=== PATIENT | female | born 1970 | race African-American/Black ===

== ENCOUNTER → 2018-07-30 | Day surgery (SDC) | payer MEDICARE, MEDICAID ==
[~2018-07-30] VITALS: Ht 170.2 cm; Wt 130.4 kg
[~2018-07-30] MED LIST: BACITRACIN 50,000 UNITS/VIAL ONE; BACITRACIN ZINC 15GM TUBE TOP ONE; BUPIVACAINE HCL/PF 0.5% (5MG/ML) 10ML ONE; BUPR150T3 PO; CYCL10TA7 PO; DIPH25CA83 PO; DOCU-150 PO; FERR325T6 PO; FURO40TA5 PO; GELATIN SPONGE,COMPRESSED SZ 100 ONE; HEPARIN SODIUM 1,000 UNIT/1ML VIAL IV ONE; HYDR-4001 PO; LIDOCAINE HCL 1% 10 MG/ML 10ML VIAL ONE; LISI-604 PO; METO100T16 PO; MIDO5TAB PO; NORMAL SALINE 0.9% 10 ML SYR ONE; ONDA4TAB5 PO; REN800 PO; SIMV20TA6 PO; SODIUM CHLORIDE 0.9% 500 ML IV ONE; SPIR25TA6 PO; THROMBIN (BOVINE) 5000 UNITS/VIAL TOP ONE; TRAZ-212 PO
== END | disposition home or self-care (01) ==
LOC: OR 09:18
PROVIDERS: ATTEND Surgery Vascular Surgery
DX: N18.6 End stage renal disease (principal); Z53.9 Procedure and treatment not carried out, unspecified reason; F41.9 Anxiety disorder, unspecified; F17.210 Nicotine dependence, cigarettes, uncomplicated; Z79.899 Other long term (current) drug therapy
CPT/HCPCS: 93005; A4216; J1644; J3490

== ENCOUNTER 2019-02-18 16:42 | Inpatient (IN) | payer MEDICARE, MEDICAID ==
[~2019-02-18] VITALS: Ht 170.2 cm; Wt 138.4 kg
[~2019-02-18 16:42] MED LIST changes: -BACITRACIN 50,000 UNITS/VIAL ONE; -BACITRACIN ZINC 15GM TUBE TOP ONE; -BUPIVACAINE HCL/PF 0.5% (5MG/ML) 10ML ONE; -FURO40TA5 PO; -GELATIN SPONGE,COMPRESSED SZ 100 ONE; -HEPARIN SODIUM 1,000 UNIT/1ML VIAL IV ONE; -LIDOCAINE HCL 1% 10 MG/ML 10ML VIAL ONE; -LISI-604 PO; -METO100T16 PO; -NORMAL SALINE 0.9% 10 ML SYR ONE; -SIMV20TA6 PO; -SODIUM CHLORIDE 0.9% 500 ML IV ONE; -SPIR25TA6 PO; -THROMBIN (BOVINE) 5000 UNITS/VIAL TOP ONE
[2019-02-18] MEDS ORDERED: ACETAMINOPHEN 325MG TABLET PO PRN (18:00)
[2019-02-18] MEDS ORDERED: GUAIFENESIN 200MG/10ML SUGAR FREE UDC PO PRN (18:00)
[2019-02-18] MEDS ORDERED: HEPARIN 5000 UNITS/ML VIAL IV ONE (18:00)
[2019-02-18] MEDS ORDERED: MAGNESIUM/ALUMINUM HYDROXIDE/SIMETHICONE 30ML UDC PO PRN (18:00)
[2019-02-18] MEDS ORDERED: CLONIDINE 0.1MG TABLET PO PRN (18:00)
[2019-02-18] MEDS ORDERED: HEPARIN 25,000 UNITS PREMIX 500 ML IV SCH (18:00)
[2019-02-18] MEDS ORDERED: HYDROCODONE/ACETAMINOPHEN 5/325MG TABLET PO ONE (18:45)
[2019-02-18 19:05] LABS: HEMATOCRIT. 31.6 % (36.0-48.0); HEMOGLOBIN. 10.7 g/dL (12.0-16.0); MEAN CORPUSCULAR HEMOGLOBIN 30.7 pg (28.0-32.0); MEAN CORPUSCULAR VOLUME 90.9 fL (81.0-99.0); MEAN PLATELET VOLUME 8.7 fl (7.4-10.4); PLATELET 141 x1000/uL (130-400); RED BLOOD CELL COUNT 3.48 mill/uL (4.2-5.4); RED CELL DISTRIBUTION WIDTH 15.5 % (11.6-14.6)
[2019-02-18 19:09] LABS: CHLORIDE 100 mEq/L (98-107)
[2019-02-18 20:21] LABS: PLATELET ESTIMATE NORMAL
[2019-02-18] MEDS: MORPHINE SULFATE 4 MG/ML CPJ (NOT FOR IM USE) IV PRN (20:40)
[2019-02-18] MEDS: ONDANSETRON HCL 4MG/2ML INJ IV PRN (20:41)
[2019-02-18 21:43] LABS: HEMATOCRIT. 33.8 % (36.0-48.0); HEMOGLOBIN. 11.3 g/dL (12.0-16.0); MEAN CORPUSCULAR HEMOGLOBIN 30.3 pg (28.0-32.0); MEAN CORPUSCULAR VOLUME 90.5 fL (81.0-99.0); MEAN PLATELET VOLUME 8.7 fl (7.4-10.4); PLATELET 148 x1000/uL (130-400); RED BLOOD CELL COUNT 3.73 mill/uL (4.2-5.4); RED CELL DISTRIBUTION WIDTH 15.2 % (11.6-14.6)
[2019-02-18] MEDS ORDERED: HYDROCODONE/ACETAMINOPHEN 5/325MG TABLET PO PRN (22:00)
[2019-02-18 22:03] LABS: PLATELET ESTIMATE NORMAL
[2019-02-18 22:20] VITALS: BP 155/60
[2019-02-18] MEDS ORDERED: TRAMADOL 50MG TABLET PO PRN ×2 (23:15→23:45)
[2019-02-19 00:11] LABS: PARTIAL THROMBOPLASTIN TIME 29.3 sec (23.4-31.0)
[2019-02-19] MEDS: MORPHINE SULFATE 4 MG/ML CPJ (NOT FOR IM USE) IV PRN ×4 (00:41→20:10)
[2019-02-19] MEDS ORDERED: HEPARIN BOLUS PRN aPTT <36 IV (02:00)
[2019-02-19] MEDS ORDERED: HEPARIN BOLUS PRN aPTT 37-44 IV (02:00)
[2019-02-19] MEDS: HEPARIN 25,000 UNITS PREMIX 500 ML IV SCH ×2 (02:35→18:10)
[2019-02-19] MEDS: DIPHENHYDRAMINE 50MG/ML VIAL IV PRN ×4 (02:40→20:10)
[2019-02-19 04:00] VITALS: BP 144/70
[2019-02-19 07:06] LABS: HEMATOCRIT. 33.5 % (36.0-48.0); MEAN CORPUSCULAR HEMOGLOBIN 30.2 pg (28.0-32.0); MEAN CORPUSCULAR VOLUME 91.8 fL (81.0-99.0); MEAN PLATELET VOLUME 9.1 fl (7.4-10.4); PLATELET 174 x1000/uL (130-400); RED BLOOD CELL COUNT 3.65 mill/uL (4.2-5.4); RED CELL DISTRIBUTION WIDTH 15.5 % (11.6-14.6)
[2019-02-19 07:43] LABS: CHLORIDE 100 mEq/L (98-107)
[2019-02-19 08:00] VITALS: BP 135/79
[2019-02-19] MEDS: AMLODIPINE 10MG TABLET PO SCH (09:00)
[2019-02-19] MEDS: LOSARTAN POTASSIUM 50 MG TABLET PO SCH ×2 (09:00→21:00)
[2019-02-19] MEDS: SEVELAMER CARBONATE 800 MG TABLET PO SCH ×3 (09:24→18:10)
[2019-02-19 12:00] VITALS: BP 116/65
[2019-02-19] MEDS ORDERED: LEVOFLOXACIN 500MG PREMIX 100 ML IV SCH (12:00)
[2019-02-19] MEDS: ONDANSETRON HCL 4MG/2ML INJ IV PRN ×2 (13:08→19:42)
[2019-02-19 20:00] VITALS: BP 102/50
[2019-02-19 20:31] LABS: PLATELET ESTIMATE NORMAL
[2019-02-19] MEDS ORDERED: REGADENOSON 0.4 MG/5 ML IV NR (21:00)
[2019-02-19] MEDS: ZOLPIDEM TARTRATE 5MG TABLET PO PRN (23:36)
[2019-02-20] VITALS (7 sets, daily range): BP systolic 91–124; BP diastolic 38–63
[2019-02-20 07:25] LABS: CHLORIDE 101 mEq/L (98-107)
[2019-02-20 07:55] LABS: BASOPHILS % 0.8 % (0.0-2.0); EOSINOPHILS % 0.8 % (0.0-5.0); HEMATOCRIT. 31.6 % (36.0-48.0); HEMOGLOBIN. 10.5 g/dL (12.0-16.0); LYMPHOCYTES % 22.9 % (20.0-50.0); MEAN CORPUSCULAR HEMOGLOBIN 30.6 pg (28.0-32.0); MEAN CORPUSCULAR VOLUME 91.9 fL (81.0-99.0); MEAN PLATELET VOLUME 8.8 fl (7.4-10.4); MONOCYTES % 5.9 % (2.0-8.0); NEUTROPHILS % 69.6 % (40.0-76.0); PLATELET 158 x1000/uL (130-400); RED BLOOD CELL COUNT 3.44 mill/uL (4.2-5.4); RED CELL DISTRIBUTION WIDTH 15.8 % (11.6-14.6)
[2019-02-20] MEDS: AMLODIPINE 10MG TABLET PO SCH (08:45)
[2019-02-20] MEDS: LOSARTAN POTASSIUM 50 MG TABLET PO SCH ×2 (08:45→21:00)
[2019-02-20] MEDS: SEVELAMER CARBONATE 800 MG TABLET PO SCH ×3 (08:49→17:28)
[2019-02-20] MEDS: HEPARIN 25,000 UNITS PREMIX 500 ML IV SCH (09:39)
[2019-02-20] MEDS: MORPHINE SULFATE 4 MG/ML CPJ (NOT FOR IM USE) IV PRN ×3 (09:48→20:23)
[2019-02-20] MEDS: ONDANSETRON HCL 4MG/2ML INJ IV PRN ×2 (09:49→19:00)
[2019-02-20] MEDS: DIPHENHYDRAMINE 50MG/ML VIAL IV PRN ×3 (11:01→23:14)
[2019-02-20] MEDS: FAMOTIDINE 20MG TABLET PO SCH (20:23)
[2019-02-20] MEDS: ZOLPIDEM TARTRATE 5MG TABLET PO PRN (23:14)
[2019-02-21] VITALS (7 sets, daily range): BP systolic 99–135; BP diastolic 46–97
[2019-02-21] MEDS: HEPARIN 25,000 UNITS PREMIX 500 ML IV SCH (03:24)
[2019-02-21 08:30] LABS: PROTHROMBIN TIME 10.5 sec (9.6-11.0)
[2019-02-21] MEDS: LOSARTAN POTASSIUM 50 MG TABLET PO SCH ×2 (09:00→21:00)
[2019-02-21] MEDS: AMLODIPINE 10MG TABLET PO SCH (09:00)
[2019-02-21] MEDS ORDERED: REGADENOSON 0.4 MG/5 ML IV ONE (09:08)
[2019-02-21] MEDS: DIPHENHYDRAMINE 50MG/ML VIAL IV PRN ×3 (10:57→20:24)
[2019-02-21] MEDS: SEVELAMER CARBONATE 800 MG TABLET PO SCH ×3 (10:57→20:02)
[2019-02-21] MEDS: MORPHINE SULFATE 4 MG/ML CPJ (NOT FOR IM USE) IV PRN ×3 (10:58→20:28)
[2019-02-21] MEDS ORDERED: SODIUM BICARBONATE 4% (2.4MEQ) 5ML VIAL IV ONE (13:30)
[2019-02-21] MEDS ORDERED: LIDOCAINE HCL 1% 20ML VIAL (Pyxis) INJ ONE (13:30)
[2019-02-21] MEDS: LEVOFLOXACIN 500MG TABLET PO SCH (14:39)
[2019-02-21] MEDS: DOCUSATE SODIUM 100MG CAPSULE PO PRN (14:44)
[2019-02-21] MEDS: ONDANSETRON HCL 4MG/2ML INJ IV PRN (15:24)
[2019-02-21] MEDS: ENOXAPARIN 150MG/ML SYR SUBCUT SCH (17:49)
[2019-02-21] MEDS ORDERED: ASPI-1159 PO (19:43)
[2019-02-21] MEDS ORDERED: CINA30 PO ×2 (19:45→19:46)
[2019-02-21] MEDS ORDERED: FURO40TA5 PO (19:54)
[2019-02-21] MEDS ORDERED: OMEP20CA10 PO (19:54)
[2019-02-21] MEDS ORDERED: ROSU10TA25 PO (19:55)
[2019-02-21] MEDS ORDERED: OLME40TA18 PO (19:57)
[2019-02-21] MEDS: WARFARIN SODIUM 5MG TABLET PO SCH (20:01)
[2019-02-21] MEDS: ZOLPIDEM TARTRATE 5MG TABLET PO PRN (22:39)
[2019-02-21] MEDS: FAMOTIDINE 20MG TABLET PO SCH (22:44)
[2019-02-22] VITALS: BP 115/67
[2019-02-22] MEDS: MORPHINE SULFATE 4 MG/ML CPJ (NOT FOR IM USE) IV PRN ×4 (00:41→21:19)
[2019-02-22] MEDS: DIPHENHYDRAMINE 50MG/ML VIAL IV PRN ×4 (00:41→21:14)
[2019-02-22] MEDS: ONDANSETRON HCL 4MG/2ML INJ IV PRN ×2 (00:45→17:00)
[2019-02-22 08:00] VITALS: BP 113/66
[2019-02-22] MEDS ORDERED: HEPARIN SODIUM 1,000 UNIT/1ML VIAL IV NR (08:45)
[2019-02-22 08:53] LABS: PROTHROMBIN TIME 10.8 sec (9.6-11.0)
[2019-02-22] MEDS: LOSARTAN POTASSIUM 50 MG TABLET PO SCH ×2 (09:00→20:02)
[2019-02-22] MEDS: AMLODIPINE 10MG TABLET PO SCH (09:00)
[2019-02-22] MEDS: SEVELAMER CARBONATE 800 MG TABLET PO SCH ×3 (11:14→18:25)
[2019-02-22] MEDS: DOCUSATE SODIUM 100MG CAPSULE PO PRN (11:14)
[2019-02-22 12:00] VITALS: BP 116/60
[2019-02-22] MEDS: ENOXAPARIN 150MG/ML SYR SUBCUT SCH (14:13)
[2019-02-22] MEDS: LACTULOSE 20G/30ML UDC PO PRN (16:29)
[2019-02-22] MEDS: WARFARIN SODIUM 5MG TABLET PO SCH (18:24)
[2019-02-22 20:00] VITALS: BP 119/61
[2019-02-22] MEDS: FAMOTIDINE 20MG TABLET PO SCH (20:24)
[2019-02-23] VITALS (20 sets, daily range): BP systolic 116–152; BP diastolic 49–79
[2019-02-23] MEDS: ZOLPIDEM TARTRATE 5MG TABLET PO PRN (00:19)
[2019-02-23] MEDS: MORPHINE SULFATE 4 MG/ML CPJ (NOT FOR IM USE) IV PRN (03:34)
[2019-02-23 06:49] LABS: INR 1.1; PROTHROMBIN TIME 10.9 sec (9.6-11.0)
[2019-02-23] MEDS ORDERED: METHADONE HCL 10MG TABLET PO SCH (08:00)
[2019-02-23] MEDS: LOSARTAN POTASSIUM 50 MG TABLET PO SCH ×3 (08:56→22:04)
[2019-02-23] MEDS: AMLODIPINE 10MG TABLET PO SCH (08:57)
[2019-02-23] MEDS: SEVELAMER CARBONATE 800 MG TABLET PO SCH ×3 (09:12→18:10)
[2019-02-23] MEDS ORDERED: HEPARIN 1000 UNITS/ML 10ML ONE (13:20)
[2019-02-23] MEDS ORDERED: LIDOCAINE HCL 1% 20ML VIAL (Pyxis) INJ ONE (13:20)
[2019-02-23] MEDS ORDERED: SODIUM BICARBONATE 4% (2.4MEQ) 5ML VIAL IV ONE (13:20)
[2019-02-23] MEDS ORDERED: CEFAZOLIN 1000MG PREMIX 50 ML IV ONE ×2 (13:31→13:45)
[2019-02-23] MEDS ORDERED: FENTANYL CITRATE/PF 50MCG/ML 2ML VIAL ONE (13:32)
[2019-02-23] MEDS: LEVOFLOXACIN 500MG TABLET PO SCH (14:00)
[2019-02-23] MEDS: ENOXAPARIN 150MG/ML SYR SUBCUT SCH (14:00)
[2019-02-23] MEDS ORDERED: FENTANYL CITRATE/PF 50MCG/ML 2ML VIAL IV SCH (14:15)
[2019-02-23] MEDS ORDERED: LORAZEPAM 2MG/ML CPJ IV SCH (15:45)
[2019-02-23] MEDS ORDERED: WARFARIN SODIUM 7.5MG TABLET PO SCH (18:00)
[2019-02-23] MEDS: DIPHENHYDRAMINE 50MG/ML VIAL IV PRN (19:10)
[2019-02-23] MEDS ORDERED: LORAZEPAM 2MG/ML CPJ IV PRN (22:00)
[2019-02-23] MEDS: FAMOTIDINE 20MG TABLET PO SCH (22:04)
[2019-02-24] VITALS (7 sets, daily range): BP systolic 102–152; BP diastolic 30–94
[2019-02-24] MEDS: METHADONE HCL 10MG TABLET PO PRN ×3 (00:35→20:13)
[2019-02-24] MEDS: ONDANSETRON HCL 4MG/2ML INJ IV PRN (00:39)
[2019-02-24] MEDS: DIPHENHYDRAMINE 50MG/ML VIAL IV PRN ×4 (01:58→22:41)
[2019-02-24 06:40] LABS: INR 1.1; PROTHROMBIN TIME 10.9 sec (9.6-11.0)
[2019-02-24] MEDS: AMLODIPINE 10MG TABLET PO SCH (08:04)
[2019-02-24] MEDS: LOSARTAN POTASSIUM 50 MG TABLET PO SCH ×2 (08:04→20:09)
[2019-02-24] MEDS: LACTULOSE 20G/30ML UDC PO PRN ×2 (08:10→18:14)
[2019-02-24] MEDS: SEVELAMER CARBONATE 800 MG TABLET PO SCH ×3 (08:10→18:10)
[2019-02-24] MEDS: ENOXAPARIN 150MG/ML SYR SUBCUT SCH (13:08)
[2019-02-24] MEDS ORDERED: WARFARIN SODIUM 7.5MG TABLET PO SCH (18:00)
[2019-02-24] MEDS: FAMOTIDINE 20MG TABLET PO SCH (20:09)
[2019-02-25] VITALS: BP 137/69
[2019-02-25 04:00] VITALS: BP 128/71
[2019-02-25 06:33] LABS: INR 1.1; PROTHROMBIN TIME 11.4 sec (9.6-11.0)
[2019-02-25] MEDS ORDERED: WARFARIN SODIUM 7.5MG TABLET PO SCH (08:00)
[2019-02-25] MEDS: SEVELAMER CARBONATE 800 MG TABLET PO SCH ×2 (08:10→13:10)
[2019-02-25 08:15] VITALS: BP 125/75
[2019-02-25] MEDS: LOSARTAN POTASSIUM 50 MG TABLET PO SCH (08:26)
[2019-02-25] MEDS: AMLODIPINE 10MG TABLET PO SCH (08:26)
[2019-02-25] MEDS ORDERED: POLYETHYLENE GLYCOL 3350 (17GM) 1 DOSE PACK PO SCH (10:30)
[2019-02-25] MEDS ORDERED: BISACODYL 10MG SUPP PR PRN (10:30)
[2019-02-25] MEDS ORDERED: MAGNESIUM HYDROXIDE 400MG/5ML 30ML UDC PO PRN (10:30)
[2019-02-25 12:45] VITALS: BP 126/68
[2019-02-25] MEDS: ENOXAPARIN 150MG/ML SYR SUBCUT SCH (13:20)
[2019-02-25] MEDS ORDERED: HEPARIN SODIUM 1,000 UNIT/1ML VIAL IV ONE (13:45)
[2019-02-25 13:58] VITALS: BP 126/68
[2019-02-25] MEDS: LEVOFLOXACIN 500MG TABLET PO SCH (14:00)
== END 2019-02-25 15:55 | disposition home or self-care (01) | DRG 286 ==
LOC: ER 16:42 → SUPCPDRO 17:37 → 8WST 19:28 → ENRESERV 21:12
PROVIDERS: ADMIT Hospitalist; ATTEND Hospitalist
PROC: 5A1D70Z Performance of Urinary Filtration, Intermittent, Less than 6 Hours Per Day (ICD-10-PCS; 2019-02-19)
PROC: 02HV33Z Insertion of Infusion Device into Superior Vena Cava, Percutaneous Approach (ICD-10-PCS; principal; 2019-02-21)
PROC: B518ZZA Fluoroscopy of Superior Vena Cava, Guidance (ICD-10-PCS; 2019-02-21)
PROC: 5A1D70Z Performance of Urinary Filtration, Intermittent, Less than 6 Hours Per Day (ICD-10-PCS; 2019-02-21)
PROC: B548ZZA Ultrasonography of Superior Vena Cava, Guidance (ICD-10-PCS; 2019-02-21)
PROC: B2141ZZ Fluoroscopy of Right Heart using Low Osmolar Contrast (ICD-10-PCS; 2019-02-23)
PROC: 02H633Z Insertion of Infusion Device into Right Atrium, Percutaneous Approach (ICD-10-PCS; 2019-02-23)
PROC: 5A1D70Z Performance of Urinary Filtration, Intermittent, Less than 6 Hours Per Day (ICD-10-PCS; 2019-02-23)
PROC: 0JH63XZ Insertion of Tunneled Vascular Access Device into Chest Subcutaneous Tissue and Fascia, Percutaneous Approach (ICD-10-PCS; 2019-02-23)
PROC: B244ZZZ Ultrasonography of Right Heart (ICD-10-PCS; 2019-02-23)
PROC: 5A1D70Z Performance of Urinary Filtration, Intermittent, Less than 6 Hours Per Day (ICD-10-PCS; 2019-02-24)
DX: T82.9XXA Unspecified complication of cardiac and vascular prosthetic device, implant and graft, initial encounter (principal); I50.33 Acute on chronic diastolic (congestive) heart failure; N18.6 End stage renal disease; I82.621 Acute embolism and thrombosis of deep veins of right upper extremity; I13.2 Hypertensive heart and chronic kidney disease with heart failure and with stage 5 chronic kidney disease, or end stage renal disease; Z68.42 Body mass index [BMI] 45.0-49.9, adult; J45.909 Unspecified asthma, uncomplicated; E11.22 Type 2 diabetes mellitus with diabetic chronic kidney disease; E11.65 Type 2 diabetes mellitus with hyperglycemia; E66.9 Obesity, unspecified; D72.829 Elevated white blood cell count, unspecified; E78.5 Hyperlipidemia, unspecified; F17.210 Nicotine dependence, cigarettes, uncomplicated; F41.9 Anxiety disorder, unspecified; F32.9 Major depressive disorder, single episode, unspecified; K21.9 Gastro-esophageal reflux disease without esophagitis; R35.1 Nocturia; J98.01 Acute bronchospasm; Y84.1 Kidney dialysis as the cause of abnormal reaction of the patient, or of later complication, without mention of misadventure at the time of the procedure; M17.0 Bilateral primary osteoarthritis of knee; I95.9 Hypotension, unspecified; Z79.01 Long term (current) use of anticoagulants; Z82.49 Family history of ischemic heart disease and other diseases of the circulatory system; Z99.2 Dependence on renal dialysis; Z86.11 Personal history of tuberculosis; Z87.441 Personal history of nephrotic syndrome; Z88.8 Allergy status to other drugs, medicaments and biological substances; Z88.5 Allergy status to narcotic agent; Z91.048 Other nonmedicinal substance allergy status; Z79.1 Long term (current) use of non-steroidal anti-inflammatories (NSAID); Z79.899 Other long term (current) drug therapy; Y92.89 Other specified places as the place of occurrence of the external cause
CPT/HCPCS: 36415; 36569; 36573; 71045; 76937; 77001; 78452; 82962; 83036; 84484; 93017; 93306; 93970; 96365; 96375; 99285; A9500; C1725; C1750; C1769; C1893; J0690; J1200; J1644; J1650; J1956; J2060; J2270; J2405; J2785; J3010; J3490; J7040; J7050; L8514

== ENCOUNTER 2019-05-10 05:28 | Day surgery (SDC) | payer MEDICARE, MEDICAID ==
[~2019-05-10] VITALS: Ht 170.2 cm; Wt 138.0 kg
[~2019-05-10 05:28] MED LIST changes: +ASPI-1393 PO; -BUPR150T3 PO; +CINA30 PO; -CYCL10TA7 PO; -DOCU-150 PO; -FERR325T6 PO; +FURO40TA5 PO; -HYDR-4001 PO; -MIDO5TAB PO; +OLME40TA18 PO; +OMEP20CA5 PO; -ONDA4TAB5 PO; +ROSU10TA25 PO; -TRAZ-212 PO; +TRAZ-251 PO
[2019-05-10] MEDS ORDERED: SODIUM CHLORIDE 0.9% 500 ML IV ONE (05:30)
[2019-05-10 06:35] LABS: BASOPHILS % 1.2 % (0.0-2.0); EOSINOPHILS % 1.2 % (0.0-5.0); HEMATOCRIT. 35.7 % (36.0-48.0); HEMOGLOBIN. 11.8 g/dL (12.0-16.0); LYMPHOCYTES % 19.8 % (20.0-50.0); MEAN CORPUSCULAR HEMOGLOBIN 30.1 pg (28.0-32.0); MEAN CORPUSCULAR VOLUME 91.3 fL (81.0-99.0); MEAN PLATELET VOLUME 8.1 fl (7.4-10.4); NEUTROPHILS % 69.8 % (40.0-76.0); PLATELET 238 x1000/uL (130-400); RED BLOOD CELL COUNT 3.91 mill/uL (4.2-5.4); RED CELL DISTRIBUTION WIDTH 15.3 % (11.6-14.6)
[2019-05-10 06:46] LABS: PARTIAL THROMBOPLASTIN TIME 31.1 sec (23.4-31.0); PROTHROMBIN TIME 10.2 sec (9.6-11.0)
[2019-05-10 06:48] LABS: HCG SCREEN NEGATIVE
[2019-05-10] MEDS ORDERED: HEPARIN SODIUM 1,000 UNIT/1ML VIAL IV ONE (07:01)
[2019-05-10] MEDS ORDERED: BACITRACIN 15GM TUBE TOP ONE (07:01)
[2019-05-10] MEDS ORDERED: LIDOCAINE HCL 1% 20ML VIAL (Pyxis) INJ ONE ×2 (07:01→09:38)
[2019-05-10] MEDS ORDERED: NORMAL SALINE 0.9% 10 ML SYR ONE (07:02)
[2019-05-10] MEDS ORDERED: THROMBIN (BOVINE) 5000 UNITS/VIAL TOP ONE (07:02)
[2019-05-10] MEDS ORDERED: BUPIVACAINE HCL/PF 0.5% (5MG/ML) 10ML ONE (07:02)
[2019-05-10] MEDS ORDERED: BACITRACIN 50,000 UNITS/VIAL ONE (07:02)
[2019-05-10] MEDS ORDERED: HYDR10SY15 PO (07:26)
[2019-05-10] MEDS ORDERED: ALBU90AE IH (07:26)
[2019-05-10] MEDS ORDERED: AURYXIA PO (07:26)
[2019-05-10] MEDS ORDERED: TRAZ-251 PO (07:26)
[2019-05-10] MEDS ORDERED: WARF-53 PO (07:26)
[2019-05-10] MEDS ORDERED: ONDA8TAB6 PO (07:26)
[2019-05-10] MEDS ORDERED: AMLO10TA80 PO (07:26)
[2019-05-10] MEDS ORDERED: PROPOFOL 200MG/20ML VIAL IV ONE ×3 (07:28→08:14)
[2019-05-10] MEDS ORDERED: FENTANYL CITRATE/PF 50MCG/ML 2ML VIAL ONE ×2 (07:28→08:52)
[2019-05-10] MEDS ORDERED: MIDAZOLAM HCL 2 MG/2 ML VIAL ONE (07:28)
[2019-05-10] MEDS ORDERED: ONDANSETRON HCL 4MG/2ML INJ ONE (07:49)
[2019-05-10] MEDS ORDERED: DEXAMETHASONE 4MG/ML 1ML VIAL ONE (07:49)
[2019-05-10] MEDS ORDERED: ROCURONIUM BROMIDE 10MG/ML VIAL 5ML IV ONE (08:14)
[2019-05-10] MEDS ORDERED: HYDROMORPHONE HCL/PF 2MG/ML CPJ IV PRN (08:45)
[2019-05-10] MEDS ORDERED: ONDANSETRON HCL 4MG/2ML INJ IV PRN (08:45)
[2019-05-10] MEDS ORDERED: MEPERIDINE HCL/PF 25MG/ML CPJ IV PRN (08:45)
[2019-05-10] MEDS ORDERED: LABETALOL 5MG/ML SYR 20 MG/4 ML SYRINGE IV PRN (08:45)
[2019-05-10] MEDS ORDERED: PAPAVERINE HCL 30 MG/ML 2ML IV ONE (09:03)
[2019-05-10] MEDS ORDERED: SODIUM CHLORIDE 0.9% 10ML VIAL ONE (09:38)
[2019-05-10] MEDS ORDERED: EPHEDRINE SULFATE 50MG/ML VIAL ONE (09:38)
[2019-05-10] MEDS ORDERED: CEFAZOLIN SODIUM 1000MG/VIAL ONE (09:38)
[2019-05-10] MEDS ORDERED: PHENYLEPHRINE HCL 10 MG/ML 1ML (IV VIAL) IV ONE (09:38)
[2019-05-10] MEDS ORDERED: HYDROCODONE/ACETAMINOPHEN 5/325MG TABLET PO PRN (10:15)
[2019-05-10] MEDS ORDERED: HEPARIN SODIUM 1,000 UNIT/1ML VIAL IV NR (10:30)
[2019-05-10 12:26] VITALS: BP 120/73
== END 2019-05-10 14:00 | disposition home or self-care (01) ==
LOC: OR 05:28
PROVIDERS: ATTEND Surgery Vascular Surgery
DX: I12.0 Hypertensive chronic kidney disease with stage 5 chronic kidney disease or end stage renal disease (principal); E11.22 Type 2 diabetes mellitus with diabetic chronic kidney disease; N18.6 End stage renal disease; E66.01 Morbid (severe) obesity due to excess calories; E78.00 Pure hypercholesterolemia, unspecified; F17.210 Nicotine dependence, cigarettes, uncomplicated
CPT/HCPCS: 36415; 36821; 80048; 84703; 85025; 85610; 85730; 93005; J0690; J1100; J1644; J2250; J2370; J2405; J2440; J2704; J3010; J3490; J7040; J7050

== ENCOUNTER 2019-06-15 07:05 | Day surgery (SDC) | payer MEDICARE, MEDICAID ==
[~2019-06-15] VITALS: Ht 170.2 cm; Wt 137.9 kg
[~2019-06-15 07:05] MED LIST changes: +ALBU90AE IH; +AMLO10TA80 PO; +AURYXIA PO; -DIPH25CA83 PO; +HYDR10SY15 PO; +ONDA8TAB6 PO; -REN800 PO
[2019-06-15 08:08] LABS: HEMATOCRIT 33.2 % (36.0-48.0); HEMOGLOBIN 11.2 g/dL (12.0-16.0); MEAN CORPUSCULAR HEMOGLOBIN 29.8 pg (28.0-32.0); MEAN CORPUSCULAR VOLUME 88.5 fL (81.0-99.0); PLATELET 188 x1000/uL (130-400); RED BLOOD CELL COUNT 3.76 mill/uL (4.2-5.4); RED CELL DISTRIBUTION WIDTH 15.5 % (11.6-14.6)
[2019-06-15 08:19] LABS: HCG SCREEN NEGATIVE
[2019-06-15 08:24] LABS: INR 0.9; PARTIAL THROMBOPLASTIN TIME 33.4 sec (23.4-31.0); PROTHROMBIN TIME 9.8 sec (9.6-11.0)
[2019-06-15] MEDS ORDERED: BACITRACIN 15GM TUBE TOP ONE (08:45)
[2019-06-15] MEDS ORDERED: LIDOCAINE HCL 1% 20ML VIAL (Pyxis) INJ ONE (08:45)
[2019-06-15] MEDS ORDERED: PAPAVERINE HCL 30 MG/ML 2ML IV ONE ×2 (08:45→11:31)
[2019-06-15] MEDS ORDERED: BACITRACIN 50,000 UNITS/VIAL ONE (08:46)
[2019-06-15] MEDS ORDERED: THROMBIN (BOVINE) 5000 UNITS/VIAL TOP ONE (08:46)
[2019-06-15] MEDS ORDERED: HEPARIN SODIUM 1,000 UNIT/1ML VIAL IV ONE (08:46)
[2019-06-15] MEDS ORDERED: BUPIVACAINE HCL/PF 0.5% (5MG/ML) 10ML ONE (08:46)
[2019-06-15] MEDS ORDERED: SODIUM CHLORIDE 0.9% 500 ML IV SCH (09:00)
[2019-06-15] MEDS ORDERED: HEPARIN 5000 UNITS/ML VIAL ONE (09:56)
[2019-06-15] MEDS ORDERED: MIDAZOLAM HCL 2 MG/2 ML VIAL ONE ×2 (10:19→12:14)
[2019-06-15] MEDS ORDERED: FENTANYL CITRATE/PF 50MCG/ML 2ML VIAL ONE ×2 (10:19→12:13)
[2019-06-15] MEDS ORDERED: PROPOFOL 200MG/20ML VIAL IV ONE (10:20)
[2019-06-15] MEDS ORDERED: PHENYLEPHRINE HCL 10 MG/ML 1ML (IV VIAL) IV ONE (10:26)
[2019-06-15] MEDS ORDERED: ROCURONIUM BROMIDE 10MG/ML VIAL 5ML IV ONE (10:27)
[2019-06-15] MEDS ORDERED: SODIUM CHLORIDE 0.9% 10ML VIAL ONE ×2 (10:54→10:58)
[2019-06-15] MEDS ORDERED: CEFAZOLIN SODIUM 1000MG/VIAL ONE (10:54)
[2019-06-15] MEDS ORDERED: EPHEDRINE SULFATE 50MG/ML VIAL ONE ×2 (10:58→12:01)
[2019-06-15] MEDS ORDERED: DEXAMETHASONE 4MG/ML 1ML VIAL ONE (11:06)
[2019-06-15] MEDS ORDERED: METOCLOPRAMIDE HCL 10MG/2ML VIAL ONE (11:12)
[2019-06-15] MEDS ORDERED: ONDANSETRON HCL 4MG/2ML INJ ONE (11:12)
[2019-06-15] MEDS ORDERED: ACETAMINOPHEN 325MG TABLET PO PRN (13:15)
[2019-06-15] MEDS ORDERED: MORPHINE SULFATE 2 MG/ML CPJ (NOT FOR IM USE) IV PRN (13:15)
[2019-06-15] MEDS ORDERED: ONDANSETRON HCL 4MG/2ML INJ IV PRN (13:15)
[2019-06-15] MEDS ORDERED: HYDROMORPHONE HCL/PF 2MG/ML CPJ IV PRN (13:45)
[2019-06-15] MEDS ORDERED: HYDROMORPHONE HCL/PF 2MG/ML (OR) ONE (15:20)
[2019-06-15 15:28] VITALS: BP 108/60
== END 2019-06-15 16:30 | disposition home or self-care (01) ==
LOC: OR 07:05
PROVIDERS: ATTEND Surgery Vascular Surgery
DX: I13.2 Hypertensive heart and chronic kidney disease with heart failure and with stage 5 chronic kidney disease, or end stage renal disease (principal); N18.6 End stage renal disease; I50.9 Heart failure, unspecified; E66.01 Morbid (severe) obesity due to excess calories; K21.9 Gastro-esophageal reflux disease without esophagitis; Z98.891 History of uterine scar from previous surgery; Z88.8 Allergy status to other drugs, medicaments and biological substances; Z79.899 Other long term (current) drug therapy; J90 Pleural effusion, not elsewhere classified; Z79.82 Long term (current) use of aspirin; Z91.041 Radiographic dye allergy status; Z80.8 Family history of malignant neoplasm of other organs or systems; Z82.49 Family history of ischemic heart disease and other diseases of the circulatory system; Z68.42 Body mass index [BMI] 45.0-49.9, adult
CPT/HCPCS: 36415; 36830; 80048; 84703; 85027; 85610; 85730; 93005; C1768; J0690; J1100; J1170; J1644; J2250; J2370; J2405; J2440; J2704; J2765; J3010; J3490

== ENCOUNTER → 2019-07-08 | Outpatient (CLI) | payer MEDICARE, MEDICAID ==
[~2019-07-08] MED LIST changes: -AURYXIA PO
== END | disposition home or self-care (01) ==
LOC: RAD 13:30
PROVIDERS: ATTEND Internal Medicine Nephrology
DX: J39.0 Retropharyngeal and parapharyngeal abscess (principal); E07.89 Other specified disorders of thyroid
CPT/HCPCS: 70490

== ENCOUNTER → 2020-01-18 | Outpatient (CLI) | payer MEDICARE, MEDICAID ==
[~2020-01-18] MED LIST changes: -ASPI-1393 PO; +ASPI-1497 PO; +OMEP20CA14 PO; -OMEP20CA5 PO
== END | disposition home or self-care (01) ==
LOC: RAD 10:00
PROVIDERS: ATTEND Internal Medicine Nephrology
DX: R05 Cough (principal)
CPT/HCPCS: 71046

== ENCOUNTER 2020-05-14 10:23 | Emergency (ER) | payer MEDICARE, MEDICAID ==
[~2020-05-14] VITALS: Ht 167.6 cm; Wt 137.0 kg
[2020-05-14 10:35] VITALS: BP 134/74
== END 2020-05-14 11:32 | disposition home or self-care (01) ==
LOC: ER 10:23
DX: F41.9 Anxiety disorder, unspecified (principal); I13.2 Hypertensive heart and chronic kidney disease with heart failure and with stage 5 chronic kidney disease, or end stage renal disease; I50.9 Heart failure, unspecified; N18.6 End stage renal disease; E11.22 Type 2 diabetes mellitus with diabetic chronic kidney disease; Z99.2 Dependence on renal dialysis; Z79.4 Long term (current) use of insulin
CPT/HCPCS: 99283

== ENCOUNTER → 2020-05-29 | Outpatient (CLI) | payer MEDICARE, MEDICAID | END | disposition home or self-care (01) | LOC: NM 08:54 | PROVIDERS: ATTEND Internal Medicine Nephrology | DX: E01.0 Iodine-deficiency related diffuse (endemic) goiter (principal) | CPT/HCPCS: 78014; A9516 ==

== ENCOUNTER 2021-02-05 02:23 | Emergency (ER) | payer MEDICARE, MEDICAID ==
[~2021-02-05] VITALS: Ht 170.2 cm; Wt 127.0 kg
[~2021-02-05 02:23] MED LIST changes: -FURO40TA5 PO; -OLME40TA18 PO; -ROSU10TA25 PO; -TRAZ-251 PO
[2021-02-05] MEDS ORDERED: ASPIRIN 81MG TABLET PO ONE (03:00)
[2021-02-05 03:19] LABS: BASOPHILS % 1.2 % (0.0-2.0); EOSINOPHILS % 1.6 % (0.0-5.0); HEMATOCRIT. 34.9 % (36.0-48.0); HEMOGLOBIN. 11.6 g/dL (12.0-16.0); LYMPHOCYTES % 24.6 % (20.0-50.0); MONOCYTES % 8.1 % (2.0-8.0); NEUTROPHILS % 64.5 % (40.0-76.0); RED BLOOD CELL COUNT 3.87 mill/uL (4.2-5.4); RED CELL DISTRIBUTION WIDTH 15.9 % (11.6-14.6)
[2021-02-05 03:24] LABS: CHLORIDE 101 mEq/L (98-107)
[2021-02-05] MEDS ORDERED: DIPHENHYDRAMINE 50MG/ML VIAL IV ONE (03:45)
[2021-02-05] MEDS ORDERED: HYDROCODONE/ACETAMINOPHEN 10/325MG TABLET PO ONE (03:45)
[2021-02-05 04:31] LABS: PARTIAL THROMBOPLASTIN TIME 28.8 sec (23.4-31.0); PROTHROMBIN TIME 10.4 sec (9.6-11.0)
[2021-02-05 04:45] LABS: MEAN PLATELET VOLUME 9.3 fl (7.4-10.4); PLATELET 195 x1000/uL (130-400)
[2021-02-05] MEDS ORDERED: IOHEXOL-350 100 ML BOTTLE ONE (05:41)
[2021-02-05] MEDS ORDERED: MORPHINE SULFATE 4 MG/ML CPJ (NOT FOR IM USE) IV ONE (06:00)
[2021-02-05 09:50] VITALS: BP 134/49
== END 2021-02-05 09:57 | disposition home or self-care (01) ==
LOC: ER 02:37
DX: M79.669 Pain in unspecified lower leg (principal); F17.200 Nicotine dependence, unspecified, uncomplicated; I10 Essential (primary) hypertension; J45.909 Unspecified asthma, uncomplicated; Z88.5 Allergy status to narcotic agent; Z88.8 Allergy status to other drugs, medicaments and biological substances; Z91.041 Radiographic dye allergy status; Z79.899 Other long term (current) drug therapy; Z79.82 Long term (current) use of aspirin; Z98.890 Other specified postprocedural states
CPT/HCPCS: 36415; 71045; 71250; 78580; 80053; 83880; 84484; 85025; 85610; 85730; 93970; 96374; 99285; A9540; J1200; Q9967

== ENCOUNTER 2021-09-13 19:47 | Inpatient (IN) | payer MEDICARE, MEDICAID ==
[~2021-09-13] VITALS: Ht 170.2 cm; Wt 133.8 kg
[2021-09-13 20:53] LABS: HEMATOCRIT. 31.4 % (36.0-48.0); HEMOGLOBIN. 10.3 g/dL (12.0-16.0); MEAN CORPUSCULAR HEMOGLOBIN 28.7 pg (28.0-32.0); MEAN CORPUSCULAR VOLUME 87.7 fL (81.0-99.0); MEAN PLATELET VOLUME 7.6 fl (7.4-10.4); PLATELET 238 x1000/uL (130-400); RED BLOOD CELL COUNT 3.58 mill/uL (4.2-5.4); RED CELL DISTRIBUTION WIDTH 16.3 % (11.6-14.6)
[2021-09-13 21:02] LABS: CHLORIDE 102 mEq/L (98-107); PROTHROMBIN TIME 10.6 sec (9.6-11.0)
[2021-09-13 21:15] LABS: PLATELET ESTIMATE NORMAL
[2021-09-13] MEDS ORDERED: DEXTROSE 50% WATER 50ML SYRINGE IV ONE (21:30)
[2021-09-13] MEDS ORDERED: INSULIN REGULAR (HUMULIN R) 300UNITS/3ML VIAL IV ONE (21:30)
[2021-09-13] MEDS ORDERED: SODIUM POLYSTYRENE SULFONATE 15 G/60 ML BOT PO ONE (21:30)
[2021-09-13] MEDS ORDERED: ONDANSETRON 4MG ODT PO ONE (22:00)
[2021-09-13] MEDS ORDERED: ALBUTEROL 6.7GM HFA INHALER ORI ONE (22:00)
[2021-09-14] MEDS ORDERED: ONDANSETRON HCL 4MG/2ML INJ IV PRN (04:45)
[2021-09-14] MEDS ORDERED: ACETAMINOPHEN 325MG TABLET PO PRN (04:45)
[2021-09-14] MEDS ORDERED: CLOP75TA33 PO (06:23)
[2021-09-14] MEDS ORDERED: CLONIDINE 0.1MG TABLET PO PRN (06:30)
[2021-09-14] MEDS ORDERED: DEXTROSE 50% WATER 50ML SYRINGE IV PRN ×4 (06:30→17:45)
[2021-09-14] MEDS ORDERED: MAGNESIUM/ALUMINUM HYDROXIDE/SIMETHICONE 30ML UDC PO PRN (06:30)
[2021-09-14 06:45] VITALS: BP 114/63
[2021-09-14] MEDS ORDERED: BLOOD SUGAR DIAGNOSTIC STRIP TEST SCH (07:20)
[2021-09-14] MEDS ORDERED: INSULIN LISPRO 100 UNITS/ML SUBCUT SCH (07:50)
[2021-09-14] MEDS: OMEPRAZOLE 20MG CAPSULE EXTENDED RELEASE PO SCH (08:54)
[2021-09-14] MEDS: ASPIRIN 81MG EC TABLET PO SCH (08:55)
[2021-09-14] MEDS: AMLODIPINE 10MG TABLET PO SCH (08:55)
[2021-09-14] MEDS: ENOXAPARIN 40MG/0.4ML SYR SUBCUT SCH (08:56)
[2021-09-14 08:58] VITALS: BP 114/64
[2021-09-14] MEDS ORDERED: IPRATROPIUM/ALBUTEROL 0.5-3(2.5)MG/3ML NEB HHN PRN ×2 (09:00→12:15)
[2021-09-14] MEDS: ALBUTEROL (0.083%) 2.5MG/3ML NEB HHN PRN ×2 (09:22→23:44)
[2021-09-14 12:25] VITALS: BP 106/60
[2021-09-14 14:45] LABS: HEPATITIS B SURFACE ANTIGEN NEGATIVE
[2021-09-14] MEDS ORDERED: DIPHENHYDRAMINE 50MG/ML VIAL IV NR (14:45)
[2021-09-14] MEDS: LIDOCAINE HCL 4% CREAM 76GM TUBE TP PRN (14:49)
[2021-09-14 16:17] VITALS: BP 120/64
[2021-09-14] MEDS: INSULIN LISPRO 100 UNITS/ML SUBCUT SCH ×2 (17:50→21:00)
[2021-09-14] MEDS ORDERED: LEVOFLOXACIN 750MG PREMIX 150 ML IV NR (19:00)
[2021-09-14 20:00] VITALS: BP 110/95
[2021-09-14] MEDS: BLOOD SUGAR DIAGNOSTIC STRIP TEST SCH (21:18)
[2021-09-15] VITALS: BP 110/58
[2021-09-15] MEDS ORDERED: ALPRAZOLAM 0.5 MG TABLET PO PRN (01:00)
[2021-09-15] MEDS: DIPHENHYDRAMINE 25MG CAPSULE PO PRN ×2 (01:16→14:16)
[2021-09-15 04:00] VITALS: BP 120/63
[2021-09-15] MEDS: BLOOD SUGAR DIAGNOSTIC STRIP TEST SCH (06:41)
[2021-09-15] MEDS: OMEPRAZOLE 20MG CAPSULE EXTENDED RELEASE PO SCH (06:41)
[2021-09-15] MEDS: INSULIN LISPRO 100 UNITS/ML SUBCUT SCH (07:02)
[2021-09-15 07:53] VITALS: BP 128/62
[2021-09-15] MEDS: AMLODIPINE 10MG TABLET PO SCH (08:17)
[2021-09-15] MEDS: ASPIRIN 81MG EC TABLET PO SCH (08:17)
[2021-09-15] MEDS ORDERED: LIDOCAINE HCL 1% 30ML VIAL (10MG/ML) ONE (08:47)
[2021-09-15] MEDS ORDERED: HEPARIN 1000 UNITS/ML 10ML ONE (08:47)
[2021-09-15] MEDS: ENOXAPARIN 40MG/0.4ML SYR SUBCUT SCH (09:26)
[2021-09-15] MEDS: LIDOCAINE HCL 4% CREAM 76GM TUBE TP PRN (09:28)
[2021-09-15 11:44] VITALS: BP 110/78
[2021-09-15] MEDS: CEFTRIAXONE 1,000 MG in DEXTROSE 5% WATER 50 ML IV SCH ×2 (13:00→15:04)
[2021-09-15] MEDS: SEVELAMER CARBONATE 800 MG TABLET PO SCH ×2 (13:00→15:08)
[2021-09-15 15:51] VITALS: BP 98/54
[2021-09-15 17:58] VITALS: BP 120/78
[2021-09-15 18:13] LABS: BASOPHILS % 0.7 % (0.0-2.0); EOSINOPHILS % 1.3 % (0.0-5.0); HEMATOCRIT. 25.9 % (36.0-48.0); HEMOGLOBIN. 8.5 g/dL (12.0-16.0); LYMPHOCYTES % 14.1 % (20.0-50.0); MEAN CORPUSCULAR HEMOGLOBIN 29.2 pg (28.0-32.0); MEAN CORPUSCULAR VOLUME 88.7 fL (81.0-99.0); MEAN PLATELET VOLUME 7.9 fl (7.4-10.4); MONOCYTES % 6.2 % (2.0-8.0); NEUTROPHILS % 77.7 % (40.0-76.0); PLATELET 185 x1000/uL (130-400); RED BLOOD CELL COUNT 2.92 mill/uL (4.2-5.4); RED CELL DISTRIBUTION WIDTH 16.5 % (11.6-14.6)
[2021-09-15 18:19] LABS: CHLORIDE 109 mEq/L (98-107)
[2021-09-15 18:27] LABS: LDL CHOLESTEROL 54 mg/dL (5-100)
[2021-09-15 18:30] LABS: HDL CHOLESTEROL 59 mg/dL (40-59); T4 FREE 0.89 ng/dL (0.76-1.46)
[2021-09-15 18:34] LABS: PHOSPHORUS 4.8 mg/dL (2.5-4.9)
[2021-09-16] MEDS ORDERED: LEVOFLOXACIN 500MG PREMIX 100 ML IV SCH (19:00)
== END 2021-09-15 18:05 | disposition home or self-care (01) | DRG 314 ==
LOC: ER 19:47 → MICUSO 09-14 04:14 → ENRESERV 09-14 04:31 → 6WST 09-14 04:32
PROVIDERS: ADMIT Internal Medicine; ATTEND Internal Medicine
PROC: 5A1D70Z Performance of Urinary Filtration, Intermittent, Less than 6 Hours Per Day (ICD-10-PCS; principal; 2021-09-14)
PROC: 5A1D70Z Performance of Urinary Filtration, Intermittent, Less than 6 Hours Per Day (ICD-10-PCS; 2021-09-15)
DX: T82.838A Hemorrhage due to vascular prosthetic devices, implants and grafts, initial encounter (principal); N18.6 End stage renal disease; J18.9 Pneumonia, unspecified organism; I12.0 Hypertensive chronic kidney disease with stage 5 chronic kidney disease or end stage renal disease; Z68.42 Body mass index [BMI] 45.0-49.9, adult; E11.22 Type 2 diabetes mellitus with diabetic chronic kidney disease; F41.9 Anxiety disorder, unspecified; E87.5 Hyperkalemia; D64.9 Anemia, unspecified; Y84.1 Kidney dialysis as the cause of abnormal reaction of the patient, or of later complication, without mention of misadventure at the time of the procedure; E78.5 Hyperlipidemia, unspecified; E66.9 Obesity, unspecified; Z20.822 Contact with and (suspected) exposure to COVID-19; Z99.2 Dependence on renal dialysis; Z88.8 Allergy status to other drugs, medicaments and biological substances; Z91.041 Radiographic dye allergy status; Z79.899 Other long term (current) drug therapy; Z82.49 Family history of ischemic heart disease and other diseases of the circulatory system; Z91.048 Other nonmedicinal substance allergy status; Z86.73 Personal history of transient ischemic attack (TIA), and cerebral infarction without residual deficits; Y92.89 Other specified places as the place of occurrence of the external cause; Z71.3 Dietary counseling and surveillance; Z79.02 Long term (current) use of antithrombotics/antiplatelets; Z79.82 Long term (current) use of aspirin
CPT/HCPCS: 36415; 71045; 80048; 80053; 80061; 82962; 83036; 83735; 84100; 84439; 84443; 84484; 85025; 86705; 86709; 86803; 87340; 87426; 93005; 93970; 94640; 99285; C1893; J0696; J1200; J1644; J1650; J1815; J1956; J2405; J3490; J7040; J7060; Q0162; Q0163

== ENCOUNTER 2021-10-13 13:56 | Inpatient (IN) | payer MEDICARE, MEDICAID ==
[~2021-10-13] VITALS: Ht 170.2 cm; Wt 122.9 kg
[~2021-10-13 13:56] MED LIST changes: +CLOP75TA33 PO; -HYDR10SY15 PO
[2021-10-13] MEDS ORDERED: HALOPERIDOL LACTATE 5MG/ML VIAL IM ONE (14:45)
[2021-10-13 15:12] LABS: BASOPHILS % 0.8 % (0.0-2.0); EOSINOPHILS % 1.4 % (0.0-5.0); HEMATOCRIT. 23.9 % (36.0-48.0); HEMOGLOBIN. 7.7 g/dL (12.0-16.0); LYMPHOCYTES % 20.5 % (20.0-50.0); MEAN CORPUSCULAR HEMOGLOBIN 29.3 pg (28.0-32.0); MEAN CORPUSCULAR VOLUME 90.5 fL (81.0-99.0); MEAN PLATELET VOLUME 8.1 fl (7.4-10.4); MONOCYTES % 7.4 % (2.0-8.0); NEUTROPHILS % 69.9 % (40.0-76.0); PLATELET 237 x1000/uL (130-400); RED BLOOD CELL COUNT 2.64 mill/uL (4.2-5.4); RED CELL DISTRIBUTION WIDTH 18.3 % (11.6-14.6)
[2021-10-13 15:20] LABS: CHLORIDE 98 mEq/L (98-107)
[2021-10-13] MEDS ORDERED: ACETAMINOPHEN 325MG TABLET PO PRN (19:30)
[2021-10-13] MEDS ORDERED: IPRATROPIUM/ALBUTEROL 0.5-3(2.5)MG/3ML NEB HHN PRN (19:30)
[2021-10-13] MEDS ORDERED: CLONIDINE 0.1MG TABLET PO PRN (19:30)
[2021-10-13] MEDS ORDERED: AZITHROMYCIN 500 MG in DEXT 5% WATER 250 ML IV NR (19:30)
[2021-10-13] MEDS ORDERED: ONDANSETRON HCL 4MG/2ML INJ IV PRN (19:30)
[2021-10-14] VITALS (10 sets, daily range): BP systolic 96–127; BP diastolic 53–81
[2021-10-14 04:50] LABS: CHLORIDE 98 mEq/L (98-107)
[2021-10-14 04:59] LABS: BASOPHILS % 0.5 % (0.0-2.0); EOSINOPHILS % 1.3 % (0.0-5.0); HEMATOCRIT. 21.9 % (36.0-48.0); HEMOGLOBIN. 7.2 g/dL (12.0-16.0); LYMPHOCYTES % 26.1 % (20.0-50.0); MEAN CORPUSCULAR HEMOGLOBIN 29.4 pg (28.0-32.0); MEAN CORPUSCULAR VOLUME 89.7 fL (81.0-99.0); MONOCYTES % 7.1 % (2.0-8.0); PLATELET 216 x1000/uL (130-400); RED BLOOD CELL COUNT 2.44 mill/uL (4.2-5.4)
[2021-10-14] MEDS ORDERED: HALOPERIDOL 0.5MG TABLET PO PRN (06:30)
[2021-10-14] MEDS ORDERED: HALOPERIDOL 2MG TABLET PO PRN (07:15)
[2021-10-14] MEDS: BACLOFEN 10MG TABLET PO SCH ×2 (12:03→22:54)
[2021-10-14] MEDS: SEVELAMER CARBONATE 800 MG TABLET PO SCH ×2 (12:03→18:49)
[2021-10-14 12:26] LABS: PARTIAL THROMBOPLASTIN TIME 23.4 sec (23.4-31.0)
[2021-10-14] MEDS ORDERED: LIDOCAINE HCL 1% 20ML VIAL (Pyxis) INJ ONE (12:47)
[2021-10-14] MEDS ORDERED: HEPARIN 1000 UNITS/ML 10ML ONE (12:47)
[2021-10-14] MEDS ORDERED: ENOXAPARIN 40MG/0.4ML SYR SUBCUT SCH (14:00)
[2021-10-14] MEDS ORDERED: ACETAMINOPHEN 325MG TABLET PO PRN (14:00)
[2021-10-14] MEDS ORDERED: ZOLPIDEM TARTRATE 5MG TABLET PO PRN (14:00)
[2021-10-14] MEDS ORDERED: GUAIFENESIN 200MG/10ML SUGAR FREE UDC PO PRN (14:00)
[2021-10-14] MEDS ORDERED: CLONIDINE 0.1MG TABLET PO PRN (14:00)
[2021-10-14] MEDS ORDERED: MAGNESIUM/ALUMINUM HYDROXIDE/SIMETHICONE 30ML UDC PO PRN (14:00)
[2021-10-14] MEDS ORDERED: IPRATROPIUM/ALBUTEROL 0.5-3(2.5)MG/3ML NEB NEB PRN (14:00)
[2021-10-14] MEDS ORDERED: DOCUSATE SODIUM 100MG CAPSULE PO PRN (14:00)
[2021-10-14] MEDS ORDERED: NALOXONE HCL 0.4MG/ML VIAL IV PRN (14:15)
[2021-10-14] MEDS ORDERED: NITROGLYCERIN 0.4MG TABLET SL SL PRN (14:15)
[2021-10-14] MEDS: TRAMADOL 50MG TABLET PO PRN ×2 (14:49→22:53)
[2021-10-14] MEDS ORDERED: SEVELAMER CARBONATE 800 MG TABLET PO SCH (17:50)
[2021-10-14] MEDS ORDERED: HEPARIN SODIUM 1,000 UNIT/1ML VIAL IV NR (19:10)
[2021-10-14] MEDS: PREDNISONE 20MG TABLET PO SCH ×2 (20:00→20:43)
[2021-10-14 20:16] LABS: T4 FREE 1.01 ng/dL (0.76-1.46)
[2021-10-14] MEDS: ONDANSETRON HCL 4MG/2ML INJ IV PRN (20:31)
[2021-10-14 20:33] LABS: FOLIC ACID (FOLATE) SERUM 5.5 ng/mL (>5.38)
[2021-10-14 22:04] LABS: CREATINE KINASE 59 IU/L (26-192)
[2021-10-14 22:05] LABS: CREATINE KINASE MB FRACTION < 1.0 ng/mL (0.5-3.6)
[2021-10-14] MEDS: FAMOTIDINE 20MG TABLET PO SCH (22:54)
[2021-10-14] MEDS: AZITHROMYCIN 500MG in DEXTROSE 5% WATER 250ML IV SCH (23:18)
[2021-10-15] VITALS: BP 108/47
[2021-10-15] MEDS: ONDANSETRON HCL 4MG/2ML INJ IV PRN ×3 (00:24→14:28)
[2021-10-15] MEDS ORDERED: PREDNISONE 20MG TABLET PO SCH ×2 (02:00→08:00)
[2021-10-15 04:00] VITALS: BP 105/48
[2021-10-15] MEDS ORDERED: POLYMYXIN B SULFATE 500000 UNITS/VIAL ONE (06:46)
[2021-10-15] MEDS ORDERED: LIDOCAINE HCL 1% 20ML VIAL (Pyxis) INJ ONE (06:47)
[2021-10-15] MEDS ORDERED: BACITRACIN 15GM TUBE TOP ONE (06:47)
[2021-10-15] MEDS ORDERED: BUPIVACAINE HCL/PF 0.5% (5MG/ML) 10ML ONE (06:48)
[2021-10-15] MEDS ORDERED: HEPARIN SODIUM 1,000 UNIT/1ML VIAL IV ONE (06:48)
[2021-10-15] MEDS ORDERED: THROMBIN (BOVINE) 5000 UNITS/VIAL TOP ONE (06:49)
[2021-10-15 06:51] LABS: BASOPHILS % 0.6 % (0.0-2.0); EOSINOPHILS % 1.8 % (0.0-5.0); HEMATOCRIT. 22.1 % (36.0-48.0); HEMOGLOBIN. 7.6 g/dL (12.0-16.0); MEAN CORPUSCULAR HEMOGLOBIN 30.3 pg (28.0-32.0); MEAN CORPUSCULAR VOLUME 88.4 fL (81.0-99.0); MEAN PLATELET VOLUME 8.1 fl (7.4-10.4); MONOCYTES % 8.8 % (2.0-8.0); NEUTROPHILS % 68.8 % (40.0-76.0); PLATELET 176 x1000/uL (130-400); RED BLOOD CELL COUNT 2.49 mill/uL (4.2-5.4); RED CELL DISTRIBUTION WIDTH 17.1 % (11.6-14.6)
[2021-10-15 07:12] LABS: CHLORIDE 102 mEq/L (98-107)
[2021-10-15 07:19] LABS: PHOSPHORUS 7.7 mg/dL (2.5-4.9)
[2021-10-15 07:20] LABS: LDL CHOLESTEROL 47 mg/dL (5-100)
[2021-10-15 07:22] LABS: HDL CHOLESTEROL 72 mg/dL (40-59)
[2021-10-15 08:00] VITALS: BP 97/64
[2021-10-15] MEDS ORDERED: METHYLPREDNISOLONE SOD SUCC 40 MG/ML VIAL IV NR (08:00)
[2021-10-15] MEDS ORDERED: DIPHENHYDRAMINE 50MG CAPSULE PO SCH (08:00)
[2021-10-15] MEDS: SEVELAMER CARBONATE 800 MG TABLET PO SCH ×3 (08:20→17:21)
[2021-10-15] MEDS ORDERED: ALPRAZOLAM 0.25 MG TABLET PO PRN (09:30)
[2021-10-15] MEDS ORDERED: PROPOFOL 200MG/20ML VIAL IV ONE (11:13)
[2021-10-15] MEDS ORDERED: FENTANYL CITRATE/PF 50MCG/ML 2ML VIAL ONE ×2 (11:13→12:05)
[2021-10-15] MEDS ORDERED: MIDAZOLAM HCL 2 MG/2 ML VIAL ONE (11:13)
[2021-10-15] MEDS ORDERED: CEFAZOLIN SODIUM 1000MG/VIAL ONE (11:16)
[2021-10-15 11:32] LABS: UCG SCREEN NEGATIVE
[2021-10-15] MEDS ORDERED: PHENYLEPHRINE HCL 10 MG/ML 1ML (IV VIAL) IV ONE (12:32)
[2021-10-15] MEDS ORDERED: MORPHINE SULFATE 4 MG/ML CPJ (NOT FOR IM USE) IV PRN (12:45)
[2021-10-15] MEDS ORDERED: HEPARIN 1000 UNITS/ML 10ML ONE (13:07)
[2021-10-15] MEDS: BACLOFEN 10MG TABLET PO SCH ×2 (14:00→21:31)
[2021-10-15] MEDS ORDERED: ENOXAPARIN 40MG/0.4ML SYR SUBCUT NR (15:00)
[2021-10-15 16:00] VITALS: BP 115/65
[2021-10-15] MEDS: MORPHINE SULFATE 2 MG/ML CPJ (NOT FOR IM USE) IV PRN ×2 (17:22→21:33)
[2021-10-15 20:30] VITALS: BP 101/44
[2021-10-15] MEDS: AZITHROMYCIN 500MG in DEXTROSE 5% WATER 250ML IV SCH (21:31)
[2021-10-15] MEDS: FAMOTIDINE 20MG TABLET PO SCH (21:31)
[2021-10-16] VITALS: BP 103/44
[2021-10-16 04:00] VITALS: BP 99/61
[2021-10-16] MEDS: ONDANSETRON HCL 4MG/2ML INJ IV PRN ×2 (04:32→11:46)
[2021-10-16] MEDS: BACLOFEN 10MG TABLET PO SCH ×3 (06:28→21:30)
[2021-10-16 07:31] LABS: HAPTOGLOBIN 219 mg/dL (30-200)
[2021-10-16 08:00] VITALS: BP 105/58
[2021-10-16] MEDS: SEVELAMER CARBONATE 800 MG TABLET PO SCH ×3 (08:20→18:20)
[2021-10-16] MEDS ORDERED: LIDOCAINE HCL 1% 20ML VIAL (Pyxis) INJ ONE (09:53)
[2021-10-16 11:42] VITALS: BP 101/59
[2021-10-16 16:00] VITALS: BP 100/58
[2021-10-16] MEDS ORDERED: HEPARIN SODIUM 1,000 UNIT/1ML VIAL IV ONE (17:30)
[2021-10-16 20:00] VITALS: BP 102/59
[2021-10-16] MEDS: FAMOTIDINE 20MG TABLET PO SCH (21:30)
[2021-10-16] MEDS: AZITHROMYCIN 500MG in DEXTROSE 5% WATER 250ML IV SCH (21:30)
[2021-10-17] VITALS: BP 97/52
[2021-10-17 04:00] VITALS: BP 104/64
[2021-10-17] MEDS: BACLOFEN 10MG TABLET PO SCH ×3 (06:05→22:08)
[2021-10-17 06:43] LABS: HEPATITIS B SURFACE ANTIGEN NEGATIVE
[2021-10-17 07:33] VITALS: BP 102/55
[2021-10-17] MEDS: SEVELAMER CARBONATE 800 MG TABLET PO SCH ×3 (08:48→17:33)
[2021-10-17 09:08] LABS: IMMUNOGLOBULIN A 375 mg/dL (87-352); IMMUNOGLOBULIN G 824 mg/dL (586-1602); IMMUNOGLOBULIN M 90 mg/dL (26-217)
[2021-10-17 12:00] VITALS: BP 103/56
[2021-10-17 16:00] VITALS: BP 99/50
[2021-10-17 20:00] VITALS: BP 107/52
[2021-10-17] MEDS: AZITHROMYCIN 500MG in DEXTROSE 5% WATER 250ML IV SCH (20:18)
[2021-10-17] MEDS: FAMOTIDINE 20MG TABLET PO SCH (20:18)
[2021-10-18] VITALS: BP 142/87
[2021-10-18 04:00] VITALS: BP 134/74
[2021-10-18] MEDS: BACLOFEN 10MG TABLET PO SCH ×3 (05:45→21:36)
[2021-10-18 07:57] VITALS: BP 119/59
[2021-10-18] MEDS: SILDENAFIL CITRATE 20MG TABLET PO SCH ×3 (08:00→21:36)
[2021-10-18] MEDS: DIPHENHYDRAMINE 50MG/ML VIAL IV PRN (08:18)
[2021-10-18] MEDS: SEVELAMER CARBONATE 800 MG TABLET PO SCH ×3 (08:20→18:20)
[2021-10-18 11:27] VITALS: BP 123/49
[2021-10-18 20:00] VITALS: BP 136/45
[2021-10-18] MEDS: FAMOTIDINE 20MG TABLET PO SCH (20:54)
[2021-10-19] VITALS: BP 140/77
[2021-10-19 04:00] VITALS: BP 143/64
[2021-10-19] MEDS: SILDENAFIL CITRATE 20MG TABLET PO SCH ×3 (05:29→21:06)
[2021-10-19] MEDS: BACLOFEN 10MG TABLET PO SCH ×3 (05:29→21:05)
[2021-10-19 08:00] VITALS: BP 114/54
[2021-10-19] MEDS: SEVELAMER CARBONATE 800 MG TABLET PO SCH ×3 (09:45→17:32)
[2021-10-19] MEDS ORDERED: LORAZEPAM 2MG/ML CPJ IV NR (09:45)
[2021-10-19 12:00] VITALS: BP 99/45
[2021-10-19] MEDS ORDERED: LORAZEPAM 1MG TABLET PO NR (12:00)
[2021-10-19 13:55] LABS: BASOPHILS % 0.6 % (0.0-2.0); EOSINOPHILS % 0.7 % (0.0-5.0); HEMATOCRIT. 23.9 % (36.0-48.0); HEMOGLOBIN. 7.8 g/dL (12.0-16.0); LYMPHOCYTES % 9.4 % (20.0-50.0); MEAN CORPUSCULAR HEMOGLOBIN 29.8 pg (28.0-32.0); MEAN CORPUSCULAR VOLUME 91.2 fL (81.0-99.0); MEAN PLATELET VOLUME 7.9 fl (7.4-10.4); MONOCYTES % 9.5 % (2.0-8.0); NEUTROPHILS % 79.8 % (40.0-76.0); PLATELET 155 x1000/uL (130-400); RED BLOOD CELL COUNT 2.62 mill/uL (4.2-5.4); RED CELL DISTRIBUTION WIDTH 17.4 % (11.6-14.6)
[2021-10-19] MEDS: FLUOXETINE HCL 10 MG CAPSULE PO SCH (15:00)
[2021-10-19 16:00] VITALS: BP 130/69
[2021-10-19 20:00] VITALS: BP 110/46
[2021-10-19] MEDS ORDERED: SODIUM POLYSTYRENE SULFONATE 15 G/60 ML BOT PO NR (20:00)
[2021-10-19] MEDS: FAMOTIDINE 20MG TABLET PO SCH (21:05)
[2021-10-19] MEDS: RISPERIDONE 0.25MG TABLET PO SCH (21:05)
[2021-10-20] VITALS: BP 113/96
[2021-10-20 04:00] VITALS: BP 133/68
[2021-10-20] MEDS: BACLOFEN 10MG TABLET PO SCH ×3 (06:24→21:22)
[2021-10-20] MEDS: SILDENAFIL CITRATE 20MG TABLET PO SCH ×3 (06:24→22:03)
[2021-10-20 08:00] VITALS: BP 134/75
[2021-10-20] MEDS: SEVELAMER CARBONATE 800 MG TABLET PO SCH ×3 (08:20→13:20)
[2021-10-20 08:48] LABS: BASOPHILS % 0.5 % (0.0-2.0); EOSINOPHILS % 1.1 % (0.0-5.0); HEMATOCRIT. 23.9 % (36.0-48.0); LYMPHOCYTES % 9.6 % (20.0-50.0); MEAN CORPUSCULAR HEMOGLOBIN 29.8 pg (28.0-32.0); MEAN CORPUSCULAR VOLUME 89.1 fL (81.0-99.0); MEAN PLATELET VOLUME 8.3 fl (7.4-10.4); MONOCYTES % 9.7 % (2.0-8.0); NEUTROPHILS % 79.1 % (40.0-76.0); PLATELET 170 x1000/uL (130-400); RED BLOOD CELL COUNT 2.68 mill/uL (4.2-5.4); RED CELL DISTRIBUTION WIDTH 17.3 % (11.6-14.6)
[2021-10-20] MEDS: RISPERIDONE 0.25MG TABLET PO SCH ×3 (09:00→21:22)
[2021-10-20] MEDS: FLUOXETINE HCL 10 MG CAPSULE PO SCH ×2 (09:00→09:15)
[2021-10-20 12:00] VITALS: BP 137/83
[2021-10-20] MEDS ORDERED: ALTEPLASE 2MG/VIAL ITC NR ×2 (12:00→13:00)
[2021-10-20 16:00] VITALS: BP 140/63
[2021-10-20 20:00] VITALS: BP 109/70
[2021-10-20] MEDS: FAMOTIDINE 20MG TABLET PO SCH (21:22)
[2021-10-21] VITALS: BP 105/63
[2021-10-21] MEDS: LORAZEPAM 2MG/ML CPJ IV PRN (02:59)
[2021-10-21 04:00] VITALS: BP 102/64
[2021-10-21] MEDS: DIPHENHYDRAMINE 50MG/ML VIAL IV PRN (04:22)
[2021-10-21] MEDS: BACLOFEN 10MG TABLET PO SCH ×3 (05:19→21:00)
[2021-10-21] MEDS: SILDENAFIL CITRATE 20MG TABLET PO SCH (05:20)
[2021-10-21] MEDS: SEVELAMER CARBONATE 800 MG TABLET PO SCH ×3 (08:20→18:20)
[2021-10-21] MEDS: RISPERIDONE 0.25MG TABLET PO SCH ×2 (09:00→21:00)
[2021-10-21] MEDS: FLUOXETINE HCL 10 MG CAPSULE PO SCH (09:00)
[2021-10-21 16:00] VITALS: BP 143/75
[2021-10-21 20:00] VITALS: BP 138/85
[2021-10-21] MEDS ORDERED: PREDNISONE 20MG TABLET PO SCH (20:00)
[2021-10-21] MEDS: FAMOTIDINE 20MG TABLET PO SCH (21:00)
[2021-10-22] VITALS: BP 116/72
[2021-10-22] MEDS ORDERED: PREDNISONE 20MG TABLET PO SCH ×3 (02:00→21:00)
[2021-10-22 04:20] VITALS: BP 137/88
[2021-10-22] MEDS: BACLOFEN 10MG TABLET PO SCH ×3 (06:00→21:46)
[2021-10-22 08:00] VITALS: BP 134/88
[2021-10-22] MEDS ORDERED: DIPHENHYDRAMINE 50MG CAPSULE PO SCH (08:00)
[2021-10-22] MEDS: SEVELAMER CARBONATE 800 MG TABLET PO SCH ×3 (08:42→19:11)
[2021-10-22] MEDS: RISPERIDONE 0.25MG TABLET PO SCH ×2 (08:44→21:45)
[2021-10-22] MEDS: FLUOXETINE HCL 10 MG CAPSULE PO SCH (08:44)
[2021-10-22 12:00] VITALS: BP 137/59
[2021-10-22 16:00] VITALS: BP 150/94
[2021-10-22 20:00] VITALS: BP 137/56
[2021-10-22] MEDS: FAMOTIDINE 20MG TABLET PO SCH (21:46)
[2021-10-23] VITALS: BP 114/64
[2021-10-23] MEDS ORDERED: PREDNISONE 20MG TABLET PO SCH ×2 (03:00→09:00)
[2021-10-23 04:00] VITALS: BP 127/81
[2021-10-23] MEDS: BACLOFEN 10MG TABLET PO SCH ×3 (05:46→21:55)
[2021-10-23 08:00] VITALS: BP 107/85
[2021-10-23 08:04] LABS: HEMATOCRIT. 23.4 % (36.0-48.0); HEMOGLOBIN. 7.8 g/dL (12.0-16.0); MEAN CORPUSCULAR VOLUME 90.3 fL (81.0-99.0); MEAN PLATELET VOLUME 8.7 fl (7.4-10.4); PLATELET 186 x1000/uL (130-400); RED BLOOD CELL COUNT 2.59 mill/uL (4.2-5.4); RED CELL DISTRIBUTION WIDTH 17.5 % (11.6-14.6)
[2021-10-23] MEDS ORDERED: INSULIN LISPRO 100 UNITS/ML SUBCUT SCH (08:40)
[2021-10-23] MEDS ORDERED: DEXTROSE 50% WATER 50ML SYRINGE IV SCH (08:45)
[2021-10-23] MEDS ORDERED: DIPHENHYDRAMINE 50MG CAPSULE PO SCH (09:00)
[2021-10-23] MEDS: FLUOXETINE HCL 10 MG CAPSULE PO SCH (09:03)
[2021-10-23] MEDS: SEVELAMER CARBONATE 800 MG TABLET PO SCH ×3 (09:03→17:34)
[2021-10-23 09:31] LABS: PLATELET ESTIMATE NORMAL
[2021-10-23] MEDS: RISPERIDONE 0.25MG TABLET PO SCH ×2 (09:33→21:55)
[2021-10-23] MEDS ORDERED: INSULIN REGULAR (HUMULIN R) 300UNITS/3ML VIAL IV NR (12:00)
[2021-10-23] MEDS ORDERED: DEXTROSE 50% WATER 50ML SYRINGE IV NR (12:00)
[2021-10-23] MEDS ORDERED: LIDOCAINE HCL 1% 20ML VIAL (Pyxis) INJ ONE (12:39)
[2021-10-23] MEDS ORDERED: IOHEXOL-300 100 ML BOTTLE ONE (12:39)
[2021-10-23] MEDS ORDERED: MIDAZOLAM HCL 2 MG/2 ML VIAL ONE (13:09)
[2021-10-23] MEDS ORDERED: FENTANYL CITRATE/PF 50MCG/ML 2ML VIAL ONE (13:09)
[2021-10-23] MEDS ORDERED: PROPOFOL 200MG/20ML VIAL IV ONE (13:09)
[2021-10-23] MEDS ORDERED: DEXAMETHASONE 4MG/ML 1ML VIAL ONE (13:39)
[2021-10-23] MEDS ORDERED: METOCLOPRAMIDE HCL 10MG/2ML VIAL ONE (13:39)
[2021-10-23] MEDS ORDERED: ONDANSETRON HCL 4MG/2ML INJ ONE (13:39)
[2021-10-23] MEDS ORDERED: LIDOCAINE HCL 1% 10 MG/ML 10ML VIAL ONE (13:39)
[2021-10-23 16:00] VITALS: BP 135/73
[2021-10-23] MEDS: LORAZEPAM 2MG/ML CPJ IV PRN (17:35)
[2021-10-23 20:00] VITALS: BP 136/82
[2021-10-23] MEDS: FAMOTIDINE 20MG TABLET PO SCH (21:55)
[2021-10-24] VITALS (10 sets, daily range): BP systolic 93–128; BP diastolic 41–78
[2021-10-24] MEDS: BACLOFEN 10MG TABLET PO SCH ×3 (05:40→21:24)
[2021-10-24] MEDS: LORAZEPAM 2MG/ML CPJ IV PRN (05:40)
[2021-10-24] MEDS: SEVELAMER CARBONATE 800 MG TABLET PO SCH ×3 (08:20→17:31)
[2021-10-24] MEDS: RISPERIDONE 0.25MG TABLET PO SCH ×2 (09:00→21:24)
[2021-10-24] MEDS: FLUOXETINE HCL 10 MG CAPSULE PO SCH (09:00)
[2021-10-24 11:28] LABS: BASOPHILS % 0.2 % (0.0-2.0); LYMPHOCYTES % 12.8 % (20.0-50.0); MEAN CORPUSCULAR HEMOGLOBIN 29.2 pg (28.0-32.0); MEAN CORPUSCULAR VOLUME 89.5 fL (81.0-99.0); MEAN PLATELET VOLUME 8.5 fl (7.4-10.4); MONOCYTES % 8.5 % (2.0-8.0); NEUTROPHILS % 78.5 % (40.0-76.0); PLATELET 219 x1000/uL (130-400); RED BLOOD CELL COUNT 2.31 mill/uL (4.2-5.4); RED CELL DISTRIBUTION WIDTH 17.5 % (11.6-14.6)
[2021-10-24 11:37] LABS: HEMATOCRIT. 20.7 % (36.0-48.0); HEMOGLOBIN. 6.7 g/dL (12.0-16.0)
[2021-10-24 11:51] LABS: PHOSPHORUS 8.7 mg/dL (2.5-4.9)
[2021-10-24] MEDS ORDERED: PANTOPRAZOLE SODIUM 40 MG/VIAL IV NR (13:00)
[2021-10-24] MEDS ORDERED: DIAZEPAM 5 MG/ML 2ML CPJ IV NR (13:00)
[2021-10-24] MEDS ORDERED: PAMIDRONATE DISODIUM 30 MG in SODIUM CHLORIDE 0.9% 500 ML IV ONE (15:00)
[2021-10-24] MEDS: CINACALCET HCL 30MG TABLET PO SCH (17:00)
[2021-10-24] MEDS: FAMOTIDINE 20MG TABLET PO SCH (21:24)
[2021-10-25] VITALS (8 sets, daily range): BP systolic 101–130; BP diastolic 48–78
[2021-10-25 01:29] LABS: HEMOGLOBIN 6.9 g/dL (12.0-16.0)
[2021-10-25 01:30] LABS: HEMATOCRIT 20.8 % (36.0-48.0)
[2021-10-25] MEDS: BACLOFEN 10MG TABLET PO SCH ×3 (06:02→21:38)
[2021-10-25] MEDS: RISPERIDONE 0.25MG TABLET PO SCH ×2 (09:07→21:38)
[2021-10-25] MEDS: SEVELAMER CARBONATE 800 MG TABLET PO SCH ×3 (09:07→19:06)
[2021-10-25] MEDS: FLUOXETINE HCL 10 MG CAPSULE PO SCH (09:07)
[2021-10-25 09:32] LABS: HEMATOCRIT 22.8 % (36.0-48.0); HEMOGLOBIN 7.6 g/dL (12.0-16.0)
[2021-10-25] MEDS: CINACALCET HCL 30MG TABLET PO SCH (16:50)
[2021-10-25] MEDS: FAMOTIDINE 20MG TABLET PO SCH (21:38)
[2021-10-25] MEDS: ACETAMINOPHEN 325MG TABLET PO PRN (21:38)
[2021-10-26] VITALS: BP 132/73
[2021-10-26] MEDS: HALOPERIDOL LACTATE 5MG/ML VIAL IM PRN (03:22)
[2021-10-26 04:00] VITALS: BP 109/46
[2021-10-26] MEDS: BACLOFEN 10MG TABLET PO SCH ×3 (06:00→22:00)
[2021-10-26 08:00] VITALS: BP 99/76
[2021-10-26] MEDS: FLUOXETINE HCL 10 MG CAPSULE PO SCH ×2 (09:20→09:29)
[2021-10-26] MEDS: RISPERIDONE 0.25MG TABLET PO SCH ×2 (09:20→09:28)
[2021-10-26] MEDS: SEVELAMER CARBONATE 800 MG TABLET PO SCH ×3 (09:20→18:20)
[2021-10-26] MEDS ORDERED: HALOPERIDOL LACTATE 5MG/ML VIAL IM SCH (09:30)
[2021-10-26] MEDS ORDERED: LORAZEPAM 2MG/ML CPJ IV SCH (09:30)
[2021-10-26 12:00] VITALS: BP 94/41
[2021-10-26 16:00] VITALS: BP 87/44
[2021-10-26] MEDS: CINACALCET HCL 30MG TABLET PO SCH (17:00)
[2021-10-26 20:00] VITALS: BP 97/70
[2021-10-26] MEDS: FAMOTIDINE 20MG TABLET PO SCH (21:00)
[2021-10-27] VITALS: BP 127/68
[2021-10-27 04:00] VITALS: BP 121/66
[2021-10-27] MEDS: BACLOFEN 10MG TABLET PO SCH ×3 (06:04→21:18)
[2021-10-27 06:46] LABS: BASOPHILS % 0.2 % (0.0-2.0); EOSINOPHILS % 1.3 % (0.0-5.0); HEMATOCRIT. 21.9 % (36.0-48.0); HEMOGLOBIN. 7.1 g/dL (12.0-16.0); LYMPHOCYTES % 11.9 % (20.0-50.0); MEAN CORPUSCULAR HEMOGLOBIN 29.1 pg (28.0-32.0); MEAN CORPUSCULAR VOLUME 89.5 fL (81.0-99.0); MEAN PLATELET VOLUME 8.9 fl (7.4-10.4); NEUTROPHILS % 78.6 % (40.0-76.0); PLATELET 150 x1000/uL (130-400); RED BLOOD CELL COUNT 2.45 mill/uL (4.2-5.4); RED CELL DISTRIBUTION WIDTH 17.3 % (11.6-14.6)
[2021-10-27 07:01] LABS: PHOSPHORUS 8.8 mg/dL (2.5-4.9)
[2021-10-27] MEDS: SEVELAMER CARBONATE 800 MG TABLET PO SCH ×3 (07:50→17:50)
[2021-10-27 08:00] VITALS: BP 101/62
[2021-10-27] MEDS: RISPERIDONE 0.25MG TABLET PO SCH ×2 (09:00→21:00)
[2021-10-27] MEDS: HALOPERIDOL LACTATE 5MG/ML VIAL IM PRN ×2 (09:07→19:09)
[2021-10-27 12:00] VITALS: BP 118/60
[2021-10-27 16:00] VITALS: BP 127/61
[2021-10-27] MEDS: CINACALCET HCL 30MG TABLET PO SCH (17:00)
[2021-10-27 20:00] VITALS: BP 115/63
[2021-10-27] MEDS: FAMOTIDINE 20MG TABLET PO SCH (21:00)
[2021-10-28] VITALS: BP 116/78
[2021-10-28 04:00] VITALS: BP 115/64
[2021-10-28] MEDS: BACLOFEN 10MG TABLET PO SCH ×3 (06:00→22:00)
[2021-10-28] MEDS: SEVELAMER CARBONATE 800 MG TABLET PO SCH ×3 (07:42→16:02)
[2021-10-28 08:00] VITALS: BP 121/52
[2021-10-28] MEDS: FLUOXETINE HCL 10 MG CAPSULE PO SCH (09:00)
[2021-10-28] MEDS: RISPERIDONE 0.25MG TABLET PO SCH ×2 (09:00→21:00)
[2021-10-28] MEDS: HALOPERIDOL LACTATE 5MG/ML VIAL IM PRN ×2 (09:30→17:52)
[2021-10-28] MEDS ORDERED: HALOPERIDOL LACTATE 5MG/ML VIAL IM NR (09:45)
[2021-10-28] MEDS ORDERED: LORAZEPAM 2MG/ML CPJ IV NR (09:45)
[2021-10-28 12:00] VITALS: BP 99/41
[2021-10-28 15:55] VITALS: BP 104/63
[2021-10-28] MEDS: CINACALCET HCL 30MG TABLET PO SCH (16:01)
[2021-10-28 20:00] VITALS: BP 105/74
[2021-10-28] MEDS: FAMOTIDINE 20MG TABLET PO SCH (21:00)
[2021-10-29] VITALS: BP 110/70
[2021-10-29 04:00] VITALS: BP 116/75
[2021-10-29] MEDS: HALOPERIDOL LACTATE 5MG/ML VIAL IM PRN (04:19)
[2021-10-29] MEDS: RISPERIDONE 0.25MG TABLET PO SCH ×2 (09:00→20:06)
[2021-10-29] MEDS: FLUOXETINE HCL 10 MG CAPSULE PO SCH (09:00)
[2021-10-29 12:00] VITALS: BP 119/60
[2021-10-29] MEDS: BACLOFEN 10MG TABLET PO SCH ×2 (14:00→22:30)
[2021-10-29 16:00] VITALS: BP 125/70
[2021-10-29] MEDS: SEVELAMER CARBONATE 800 MG TABLET PO SCH ×2 (17:32→17:33)
[2021-10-29] MEDS: CINACALCET HCL 30MG TABLET PO SCH (17:33)
[2021-10-29 20:00] VITALS: BP 118/76
[2021-10-29] MEDS: FAMOTIDINE 20MG TABLET PO SCH (20:06)
[2021-10-29 21:19] LABS: BASOPHILS % 0.6 % (0.0-2.0); EOSINOPHILS % 1.4 % (0.0-5.0); HEMATOCRIT. 23.3 % (36.0-48.0); HEMOGLOBIN. 7.3 g/dL (12.0-16.0); LYMPHOCYTES % 12.9 % (20.0-50.0); MEAN CORPUSCULAR HEMOGLOBIN 29.3 pg (28.0-32.0); MEAN CORPUSCULAR VOLUME 93.8 fL (81.0-99.0); MONOCYTES % 10.9 % (2.0-8.0); NEUTROPHILS % 74.2 % (40.0-76.0); PLATELET 195 x1000/uL (130-400); RED BLOOD CELL COUNT 2.48 mill/uL (4.2-5.4); RED CELL DISTRIBUTION WIDTH 18.1 % (11.6-14.6)
[2021-10-29 21:38] LABS: TOTAL IRON BINDING CAPACITY 253 ug/dL (250-450)
[2021-10-30] VITALS (12 sets, daily range): BP systolic 91–138; BP diastolic 48–72
[2021-10-30] MEDS: BACLOFEN 10MG TABLET PO SCH ×3 (05:33→22:00)
[2021-10-30 06:36] LABS: INR 1.1; PROTHROMBIN TIME 11.6 sec (9.6-11.0)
[2021-10-30 07:02] LABS: CHLORIDE 103 mEq/L (98-107)
[2021-10-30 08:18] LABS: HEMATOCRIT 25.4 % (36.0-48.0); HEMOGLOBIN 8.4 g/dL (12.0-16.0)
[2021-10-30] MEDS: SEVELAMER CARBONATE 800 MG TABLET PO SCH ×3 (08:42→17:18)
[2021-10-30] MEDS: RISPERIDONE 0.25MG TABLET PO SCH ×2 (08:42→21:00)
[2021-10-30] MEDS: FLUOXETINE HCL 10 MG CAPSULE PO SCH (08:42)
[2021-10-30] MEDS: BISACODYL 5MG TABLET PO SCH ×2 (17:18→19:30)
[2021-10-30] MEDS: CINACALCET HCL 30MG TABLET PO SCH (17:18)
[2021-10-30] MEDS: SORBITOL 70% SOLN 30ML PO SCH ×2 (17:19→20:00)
[2021-10-30] MEDS ORDERED: PREDNISONE 20MG TABLET PO NR (20:00)
[2021-10-30] MEDS: ONDANSETRON HCL 4MG/2ML INJ IV PRN (20:51)
[2021-10-30] MEDS: FAMOTIDINE 20MG TABLET PO SCH (21:00)
[2021-10-31] VITALS: BP 92/51
[2021-10-31] MEDS ORDERED: PREDNISONE 20MG TABLET PO NR ×2 (02:00→08:00)
[2021-10-31 04:00] VITALS: BP 109/46
[2021-10-31] MEDS ORDERED: BISACODYL 5MG TABLET PO SCH (05:00)
[2021-10-31] MEDS: BACLOFEN 10MG TABLET PO SCH ×3 (06:00→22:00)
[2021-10-31 06:18] LABS: INR 1.1; PROTHROMBIN TIME 11.4 sec (9.6-11.0)
[2021-10-31 06:22] LABS: BASOPHILS % 0.5 % (0.0-2.0); EOSINOPHILS % 2.2 % (0.0-5.0); HEMATOCRIT. 23.3 % (36.0-48.0); LYMPHOCYTES % 8.7 % (20.0-50.0); MEAN CORPUSCULAR HEMOGLOBIN 30.5 pg (28.0-32.0); MEAN PLATELET VOLUME 8.8 fl (7.4-10.4); MONOCYTES % 5.3 % (2.0-8.0); NEUTROPHILS % 83.3 % (40.0-76.0); PLATELET 175 x1000/uL (130-400); RED BLOOD CELL COUNT 2.62 mill/uL (4.2-5.4); RED CELL DISTRIBUTION WIDTH 16.8 % (11.6-14.6)
[2021-10-31 06:34] LABS: CHLORIDE 102 mEq/L (98-107)
[2021-10-31 08:00] VITALS: BP 130/81
[2021-10-31] MEDS ORDERED: DIPHENHYDRAMINE 50MG CAPSULE PO NR (08:00)
[2021-10-31] MEDS ORDERED: SORBITOL 70% SOLN 30ML PO SCH (09:00)
[2021-10-31] MEDS: FLUOXETINE HCL 10 MG CAPSULE PO SCH (09:03)
[2021-10-31] MEDS: SEVELAMER CARBONATE 800 MG TABLET PO SCH ×3 (09:03→17:50)
[2021-10-31] MEDS: RISPERIDONE 0.25MG TABLET PO SCH ×2 (09:04→21:00)
[2021-10-31] MEDS: DIPHENHYDRAMINE 50MG/ML VIAL IV PRN (09:04)
[2021-10-31] MEDS ORDERED: NA PHOS,M-B/NA PHOS,DI-BA ENEMA 118ML PR NR (11:00)
[2021-10-31] MEDS ORDERED: PREDNISONE 20MG TABLET PO SCH (11:30)
[2021-10-31] MEDS ORDERED: DIPHENHYDRAMINE 25MG CAPSULE PO SCH (11:30)
[2021-10-31] MEDS ORDERED: IOHEXOL-300 100 ML BOTTLE ONE (11:31)
[2021-10-31] MEDS ORDERED: LIDOCAINE HCL 1% 20ML VIAL (Pyxis) INJ ONE (11:32)
[2021-10-31] MEDS ORDERED: HEPARIN 1000 UNITS/ML 10ML ONE (11:32)
[2021-10-31 12:00] VITALS: BP 120/78
[2021-10-31] MEDS: HALOPERIDOL LACTATE 5MG/ML VIAL IM PRN (12:05)
[2021-10-31] MEDS ORDERED: ALTEPLASE 2MG/VIAL ITC NR (12:15)
[2021-10-31 13:34] LABS: HEMATOCRIT. 22.9 % (36.0-48.0); HEMOGLOBIN. 7.8 g/dL (12.0-16.0); MEAN CORPUSCULAR HEMOGLOBIN 30.1 pg (28.0-32.0); MEAN CORPUSCULAR VOLUME 87.9 fL (81.0-99.0); MEAN PLATELET VOLUME 8.9 fl (7.4-10.4); PLATELET 180 x1000/uL (130-400)
[2021-10-31] MEDS ORDERED: PROPOFOL 10MG/ML 100ML 100 ML IV PRN (13:45)
[2021-10-31] MEDS ORDERED: MIDAZOLAM HCL 5 MG/5 ML VIAL ONE ×2 (14:29→14:38)
[2021-10-31] MEDS: HALOPERIDOL LACTATE 5MG/ML VIAL IM NR ×2 (14:30)
[2021-10-31] MEDS: KETAMINE HCL 50 MG/ML 10ML IV NR (14:30)
[2021-10-31 14:49] LABS: PLATELET ESTIMATE NORMAL
[2021-10-31] MEDS ORDERED: IOHEXOL-300 50 ML BOTTLE IV ONE (15:41)
[2021-10-31] MEDS ORDERED: MEPERIDINE HCL/PF 25MG/ML CPJ IV PRN (16:15)
[2021-10-31] MEDS ORDERED: LABETALOL 5MG/ML SYR 20 MG/4 ML SYRINGE IV PRN (16:15)
[2021-10-31] MEDS ORDERED: ONDANSETRON HCL 4MG/2ML INJ IV PRN (16:15)
[2021-10-31] MEDS ORDERED: HYDROMORPHONE HCL/PF 2MG/ML CPJ IV PRN (16:15)
[2021-10-31] MEDS: ONDANSETRON HCL 4MG/2ML INJ IV PRN (16:53)
[2021-10-31] MEDS: CINACALCET HCL 30MG TABLET PO SCH (17:00)
[2021-10-31 17:33] LABS: HEMATOCRIT 23.6 % (36.0-48.0); HEMOGLOBIN 7.9 g/dL (12.0-16.0)
[2021-10-31] MEDS ORDERED: NALOXONE HCL 0.4 MG/ML 1ML VIAL IV NR (19:41)
[2021-10-31 20:00] VITALS: BP 94/42
[2021-10-31] MEDS ORDERED: FLUMAZENIL 0.1 MG/ML 5ML VIAL IV NR (20:06)
[2021-10-31] MEDS: FAMOTIDINE 20MG TABLET PO SCH (21:00)
[2021-10-31 22:49] LABS: HEMATOCRIT. 23.6 % (36.0-48.0); HEMOGLOBIN. 7.9 g/dL (12.0-16.0); MEAN CORPUSCULAR HEMOGLOBIN 29.7 pg (28.0-32.0); MEAN CORPUSCULAR VOLUME 88.5 fL (81.0-99.0); RED BLOOD CELL COUNT 2.67 mill/uL (4.2-5.4)
[2021-10-31 22:50] LABS: PLATELET 188 x1000/uL (130-400)
[2021-10-31 22:52] LABS: PLATELET ESTIMATE NORMAL
[2021-11-01] VITALS: BP 89/37
[2021-11-01] MEDS: HALOPERIDOL LACTATE 5MG/ML VIAL IM PRN (00:25)
[2021-11-01 01:23] LABS: HEMATOCRIT. 23.3 % (36.0-48.0); HEMOGLOBIN. 7.8 g/dL (12.0-16.0); MEAN CORPUSCULAR HEMOGLOBIN 30.1 pg (28.0-32.0); MEAN CORPUSCULAR VOLUME 89.6 fL (81.0-99.0); MEAN PLATELET VOLUME 8.8 fl (7.4-10.4); PLATELET 229 x1000/uL (130-400); RED BLOOD CELL COUNT 2.61 mill/uL (4.2-5.4); RED CELL DISTRIBUTION WIDTH 16.9 % (11.6-14.6)
[2021-11-01 04:00] VITALS: BP 90/26
[2021-11-01] MEDS: BACLOFEN 10MG TABLET PO SCH ×4 (06:00→21:41)
[2021-11-01] MEDS: SEVELAMER CARBONATE 800 MG TABLET PO SCH ×3 (07:50→17:50)
[2021-11-01 08:00] VITALS: BP 92/49
[2021-11-01] MEDS: RISPERIDONE 0.25MG TABLET PO SCH ×2 (09:00→21:00)
[2021-11-01] MEDS: FLUOXETINE HCL 10 MG CAPSULE PO SCH (09:00)
[2021-11-01 10:21] LABS: CHLORIDE 107 mEq/L (98-107)
[2021-11-01 10:43] LABS: INR 1.1; PROTHROMBIN TIME 11.4 sec (9.6-11.0)
[2021-11-01 11:15] LABS: NUCLEATED RED BLOOD CELLS 1 /100 WBC; PLATELET ESTIMATE NORMAL
[2021-11-01 12:00] VITALS: BP 97/48
[2021-11-01 16:00] VITALS: BP 101/65
[2021-11-01] MEDS: CINACALCET HCL 30MG TABLET PO SCH ×2 (17:00→17:50)
[2021-11-01 20:00] VITALS: BP 95/45
[2021-11-01] MEDS: FAMOTIDINE 20MG TABLET PO SCH (21:00)
[2021-11-02] VITALS: BP 98/46
[2021-11-02 04:00] VITALS: BP 97/44
[2021-11-02] MEDS: BACLOFEN 10MG TABLET PO SCH ×3 (06:00→21:49)
[2021-11-02] MEDS: SEVELAMER CARBONATE 800 MG TABLET PO SCH ×3 (07:50→17:50)
[2021-11-02 08:00] VITALS: BP 124/75
[2021-11-02] MEDS: RISPERIDONE 0.25MG TABLET PO SCH ×2 (08:06→21:49)
[2021-11-02] MEDS: FLUOXETINE HCL 10 MG CAPSULE PO SCH (08:06)
[2021-11-02 09:47] LABS: BASOPHILS % 0.5 % (0.0-2.0); EOSINOPHILS % 1.1 % (0.0-5.0); HEMATOCRIT. 23.6 % (36.0-48.0); HEMOGLOBIN. 7.7 g/dL (12.0-16.0); LYMPHOCYTES % 14.6 % (20.0-50.0); MEAN CORPUSCULAR HEMOGLOBIN 29.8 pg (28.0-32.0); MEAN CORPUSCULAR VOLUME 91.4 fL (81.0-99.0); MEAN PLATELET VOLUME 8.5 fl (7.4-10.4); MONOCYTES % 10.6 % (2.0-8.0); NEUTROPHILS % 73.2 % (40.0-76.0); PLATELET 177 x1000/uL (130-400); RED BLOOD CELL COUNT 2.58 mill/uL (4.2-5.4); RED CELL DISTRIBUTION WIDTH 17.5 % (11.6-14.6)
[2021-11-02 09:55] LABS: CHLORIDE 108 mEq/L (98-107)
[2021-11-02 12:00] VITALS: BP 107/56
[2021-11-02 16:00] VITALS: BP 126/53
[2021-11-02] MEDS: CINACALCET HCL 30MG TABLET PO SCH (17:00)
[2021-11-02 20:00] VITALS: BP 118/90
[2021-11-02] MEDS: FAMOTIDINE 20MG TABLET PO SCH (21:49)
[2021-11-03 04:00] VITALS: BP 135/71
[2021-11-03] MEDS: BACLOFEN 10MG TABLET PO SCH ×3 (05:33→21:54)
[2021-11-03 06:54] LABS: BASOPHILS % 0.4 % (0.0-2.0); EOSINOPHILS % 0.6 % (0.0-5.0); HEMATOCRIT. 22.5 % (36.0-48.0); HEMOGLOBIN. 7.6 g/dL (12.0-16.0); LYMPHOCYTES % 12.4 % (20.0-50.0); MEAN CORPUSCULAR HEMOGLOBIN 30.3 pg (28.0-32.0); MEAN CORPUSCULAR VOLUME 90.3 fL (81.0-99.0); MEAN PLATELET VOLUME 8.4 fl (7.4-10.4); MONOCYTES % 10.1 % (2.0-8.0); NEUTROPHILS % 76.5 % (40.0-76.0); PLATELET 168 x1000/uL (130-400); RED CELL DISTRIBUTION WIDTH 17.2 % (11.6-14.6)
[2021-11-03] MEDS: SEVELAMER CARBONATE 800 MG TABLET PO SCH ×3 (07:50→17:27)
[2021-11-03 08:00] VITALS: BP 112/72
[2021-11-03] MEDS: RISPERIDONE 0.25MG TABLET PO SCH ×2 (09:00→21:00)
[2021-11-03] MEDS: FLUOXETINE HCL 10 MG CAPSULE PO SCH (09:00)
[2021-11-03 12:00] VITALS: BP 120/66
[2021-11-03 15:40] VITALS: BP 124/60
[2021-11-03] MEDS: CINACALCET HCL 30MG TABLET PO SCH (17:00)
[2021-11-03 20:00] VITALS: BP 121/52
[2021-11-03] MEDS: FAMOTIDINE 20MG TABLET PO SCH (21:54)
[2021-11-04 06:29] LABS: BASOPHILS % 0.4 % (0.0-2.0); EOSINOPHILS % 0.9 % (0.0-5.0); LYMPHOCYTES % 9.7 % (20.0-50.0); MEAN CORPUSCULAR HEMOGLOBIN 30.5 pg (28.0-32.0); MEAN CORPUSCULAR VOLUME 90.4 fL (81.0-99.0); MEAN PLATELET VOLUME 8.4 fl (7.4-10.4); MONOCYTES % 9.4 % (2.0-8.0); NEUTROPHILS % 79.6 % (40.0-76.0); PLATELET 138 x1000/uL (130-400); RED BLOOD CELL COUNT 2.31 mill/uL (4.2-5.4); RED CELL DISTRIBUTION WIDTH 17.7 % (11.6-14.6)
[2021-11-04] MEDS: BACLOFEN 10MG TABLET PO SCH ×3 (06:30→22:00)
[2021-11-04 06:39] LABS: HEMATOCRIT. 20.9 % (36.0-48.0)
[2021-11-04 08:27] VITALS: BP 61/38
[2021-11-04] MEDS: SEVELAMER CARBONATE 800 MG TABLET PO SCH ×3 (08:59→17:39)
[2021-11-04] MEDS: RISPERIDONE 0.25MG TABLET PO SCH ×2 (09:00→21:00)
[2021-11-04] MEDS: FLUOXETINE HCL 10 MG CAPSULE PO SCH (09:00)
[2021-11-04 12:18] VITALS: BP 84/30
[2021-11-04] MEDS: MIDODRINE HCL 5MG TABLET PO SCH ×3 (13:00→18:06)
[2021-11-04 15:32] VITALS: BP 111/42
[2021-11-04] MEDS: CINACALCET HCL 30MG TABLET PO SCH (17:00)
[2021-11-04 20:00] VITALS: BP 118/69
[2021-11-04] MEDS: FAMOTIDINE 20MG TABLET PO SCH (21:00)
[2021-11-04] MEDS: ONDANSETRON 4MG ODT PO PRN (21:10)
[2021-11-04] MEDS: ACETAMINOPHEN 325MG TABLET PO PRN (21:10)
[2021-11-04] MEDS: ONDANSETRON HCL 4MG/2ML INJ IV PRN (21:54)
[2021-11-04 23:37] VITALS: BP 106/87
[2021-11-04 23:50] VITALS: BP 111/73
[2021-11-05] VITALS (25 sets, daily range): BP systolic 76–132; BP diastolic 49–88
[2021-11-05] MEDS: BACLOFEN 10MG TABLET PO SCH ×3 (06:00→22:00)
[2021-11-05] MEDS: SEVELAMER CARBONATE 800 MG TABLET PO SCH (07:50)
[2021-11-05 09:30] LABS: BG BASE EXCESS 0.3 mmol/L (-2.0-2.0); BG CARBOXYHEMOGLOBIN 0.6 % (0.5-1.5); BG DEOXYHEMOGLOBIN 3.5 % (0.0-5.0); BG FRACTION INSPIRED OXYGEN 28; BG HCO3 ACT 23.8 mmol/L (22.0-26.0); BG METHEMOGLOBIN 0.3 % (0.0-1.5); BG OXYGEN SATURATION 96.5 % (92.0-98.5); BG OXYHEMOGLOBIN 95.6 % (94.0-97.0); BG PCO2 33.8 mmHg (35.0-45.0); BG PH 7.466 (7.350-7.450); BG PO2 84.2 mmHg (75.0-100.0); BG SAMPLE SITE RIGHT RADIAL; BG TOTAL HEMOGLOBIN 9.1 g/dL (12.0-18.0); BG VENT MODE NASAL CANNULA
[2021-11-05 09:40] LABS: HEMATOCRIT. 26.8 % (36.0-48.0); MEAN CORPUSCULAR HEMOGLOBIN 30.2 pg (28.0-32.0); MEAN CORPUSCULAR VOLUME 89.8 fL (81.0-99.0); MEAN PLATELET VOLUME 8.5 fl (7.4-10.4); PLATELET 141 x1000/uL (130-400); RED BLOOD CELL COUNT 2.98 mill/uL (4.2-5.4)
[2021-11-05 09:51] LABS: INR 1.1; PROTHROMBIN TIME 11.4 sec (9.6-11.0)
[2021-11-05] MEDS ORDERED: LIDOCAINE HCL 1% 20ML VIAL (Pyxis) INJ ONE (10:32)
[2021-11-05] MEDS: BLOOD SUGAR DIAGNOSTIC STRIP TEST SCH ×3 (12:50→17:50)
[2021-11-05 13:22] LABS: PLATELET ESTIMATE NORMAL
[2021-11-05 15:08] LABS: HEMOGLOBIN 8.9 g/dL (12.0-16.0)
[2021-11-05] MEDS: CINACALCET HCL 30MG TABLET PO SCH (18:20)
[2021-11-05] MEDS: RISPERIDONE 0.25MG TABLET PO SCH (21:00)
[2021-11-05] MEDS: FAMOTIDINE 20MG TABLET PO SCH (22:35)
[2021-11-06] VITALS (82 sets, daily range): BP systolic 72–143; BP diastolic 33–96
[2021-11-06] MEDS: BLOOD SUGAR DIAGNOSTIC STRIP TEST SCH ×3 (06:00→17:27)
[2021-11-06 06:04] LABS: HEMATOCRIT. 23.9 % (36.0-48.0); HEMOGLOBIN. 7.7 g/dL (12.0-16.0); MEAN CORPUSCULAR HEMOGLOBIN 29.5 pg (28.0-32.0); MEAN CORPUSCULAR VOLUME 91.3 fL (81.0-99.0); MEAN PLATELET VOLUME 8.8 fl (7.4-10.4); PLATELET 125 x1000/uL (130-400); RED BLOOD CELL COUNT 2.62 mill/uL (4.2-5.4); RED CELL DISTRIBUTION WIDTH 18.6 % (11.6-14.6)
[2021-11-06] MEDS: BACLOFEN 10MG TABLET PO SCH ×3 (06:38→22:21)
[2021-11-06] MEDS ORDERED: DEXTROSE 50% WATER 50ML SYRINGE IV ONE (06:45)
[2021-11-06] MEDS ORDERED: DEXTROSE 50% WATER 50ML SYRINGE IV SCH (06:45)
[2021-11-06] MEDS ORDERED: DEXTROSE 50% WATER 50ML SYRINGE IV PRN (06:45)
[2021-11-06] MEDS ORDERED: LORAZEPAM 2MG/ML CPJ IV SCH (08:45)
[2021-11-06] MEDS: MIDODRINE HCL 5MG TABLET PO SCH ×3 (08:54→17:26)
[2021-11-06] MEDS: FLUOXETINE HCL 10 MG CAPSULE PO SCH (09:54)
[2021-11-06] MEDS: SEVELAMER CARBONATE 800 MG TABLET PO SCH ×2 (09:54→17:27)
[2021-11-06] MEDS: RISPERIDONE 0.25MG TABLET PO SCH ×2 (09:54→22:21)
[2021-11-06 10:26] LABS: PLATELET ESTIMATE NORMAL
[2021-11-06] MEDS ORDERED: HEPARIN 1000 UNITS/ML 10ML ONE (11:40)
[2021-11-06] MEDS ORDERED: LIDOCAINE HCL 1% 20ML VIAL (Pyxis) INJ ONE (11:40)
[2021-11-06] MEDS ORDERED: FENTANYL CITRATE/PF 50MCG/ML 2ML VIAL ONE (12:12)
[2021-11-06] MEDS ORDERED: CEFAZOLIN 1000MG PREMIX 50 ML IV ONE ×2 (12:12→12:30)
[2021-11-06] MEDS ORDERED: FENTANYL CITRATE/PF 50MCG/ML 2ML VIAL IV ONE (14:15)
[2021-11-06 15:17] LABS: HEMATOCRIT 21.1 % (36.0-48.0); HEMOGLOBIN 7.2 g/dL (12.0-16.0)
[2021-11-06] MEDS: CINACALCET HCL 30MG TABLET PO SCH (16:55)
[2021-11-06] MEDS: APIXABAN 2.5 MG TABLET PO SCH (17:26)
[2021-11-06] MEDS ORDERED: NOREPINEPHRINE 32 MG in DEXT 5% WATER 218 ML IV PRN (20:00)
[2021-11-06] MEDS: FAMOTIDINE 20MG TABLET PO SCH (22:21)
[2021-11-07] VITALS (101 sets, daily range): BP systolic 55–147; BP diastolic 33–88
[2021-11-07] MEDS: BLOOD SUGAR DIAGNOSTIC STRIP TEST SCH ×5 (00:26→23:12)
[2021-11-07] MEDS ORDERED: SORBITOL 70% SOLN 30ML PO SCH (06:00)
[2021-11-07] MEDS: BACLOFEN 10MG TABLET PO SCH ×3 (06:21→21:00)
[2021-11-07] MEDS: INSULIN LISPRO 100 UNITS/ML SUBCUT SCH ×4 (06:22→23:12)
[2021-11-07 07:37] LABS: HEMATOCRIT. 25.5 % (36.0-48.0); HEMOGLOBIN. 8.6 g/dL (12.0-16.0); MEAN CORPUSCULAR HEMOGLOBIN 29.9 pg (28.0-32.0); MEAN CORPUSCULAR VOLUME 88.3 fL (81.0-99.0); PLATELET 156 x1000/uL (130-400); RED BLOOD CELL COUNT 2.88 mill/uL (4.2-5.4); RED CELL DISTRIBUTION WIDTH 18.4 % (11.6-14.6)
[2021-11-07] MEDS: RISPERIDONE 0.25MG TABLET PO SCH ×2 (08:21→20:55)
[2021-11-07] MEDS: APIXABAN 2.5 MG TABLET PO SCH ×2 (08:21→18:19)
[2021-11-07] MEDS: MIDODRINE HCL 5MG TABLET PO SCH ×3 (08:22→21:00)
[2021-11-07] MEDS: FLUOXETINE HCL 10 MG CAPSULE PO SCH (08:22)
[2021-11-07] MEDS: SEVELAMER CARBONATE 800 MG TABLET PO SCH ×3 (08:22→18:19)
[2021-11-07 09:22] LABS: BG BASE EXCESS 2.4 mmol/L (-2.0-2.0); BG CARBOXYHEMOGLOBIN 0.1 % (0.5-1.5); BG DEOXYHEMOGLOBIN 0.9 % (0.0-5.0); BG FRACTION INSPIRED OXYGEN 32; BG HCO3 ACT 24.7 mmol/L (22.0-26.0); BG METHEMOGLOBIN 0.1 % (0.0-1.5); BG OXYGEN SATURATION 99.1 % (92.0-98.5); BG OXYHEMOGLOBIN 98.9 % (94.0-97.0); BG PCO2 29.6 mmHg (35.0-45.0); BG PH 7.539 (7.350-7.450); BG SAMPLE SITE RIGHT RADIAL; BG TOTAL HEMOGLOBIN 9.2 g/dL (12.0-18.0); BG VENT MODE NASAL CANNULA
[2021-11-07 09:52] LABS: PLATELET ESTIMATE NORMAL
[2021-11-07] MEDS: ONDANSETRON HCL 4MG/2ML INJ IV PRN (10:25)
[2021-11-07] MEDS ORDERED: LIDOCAINE HCL 1% 20ML VIAL (Pyxis) INJ ONE (13:16)
[2021-11-07] MEDS: CLOPIDOGREL 75MG TABLET PO SCH (14:45)
[2021-11-07] MEDS: CINACALCET HCL 30MG TABLET PO SCH (18:19)
[2021-11-07] MEDS: FAMOTIDINE 20MG TABLET PO SCH (20:55)
[2021-11-08] VITALS (11 sets, daily range): BP systolic 93–138; BP diastolic 55–86
[2021-11-08] MEDS: BACLOFEN 10MG TABLET PO SCH ×3 (06:00→22:11)
[2021-11-08] MEDS: MIDODRINE HCL 5MG TABLET PO SCH ×3 (06:00→22:11)
[2021-11-08] MEDS: INSULIN LISPRO 100 UNITS/ML SUBCUT SCH ×3 (06:00→18:00)
[2021-11-08] MEDS: BLOOD SUGAR DIAGNOSTIC STRIP TEST SCH ×3 (06:01→18:00)
[2021-11-08] MEDS: APIXABAN 2.5 MG TABLET PO SCH ×2 (08:49→18:11)
[2021-11-08] MEDS: CLOPIDOGREL 75MG TABLET PO SCH (08:49)
[2021-11-08] MEDS: SEVELAMER CARBONATE 800 MG TABLET PO SCH ×3 (08:49→18:11)
[2021-11-08] MEDS: RISPERIDONE 0.25MG TABLET PO SCH ×2 (08:49→22:11)
[2021-11-08] MEDS: FLUOXETINE HCL 10 MG CAPSULE PO SCH (08:49)
[2021-11-08 09:43] LABS: BG BASE EXCESS 0.1 mmol/L (-2.0-2.0); BG CARBOXYHEMOGLOBIN 0.3 % (0.5-1.5); BG DEOXYHEMOGLOBIN 15.1 % (0.0-5.0); BG FRACTION INSPIRED OXYGEN 21; BG HCO3 ACT 23.2 mmol/L (22.0-26.0); BG METHEMOGLOBIN 0.2 % (0.0-1.5); BG OXYGEN SATURATION 84.8 % (92.0-98.5); BG OXYHEMOGLOBIN 84.4 % (94.0-97.0); BG PCO2 31.7 mmHg (35.0-45.0); BG PH 7.482 (7.350-7.450); BG PO2 50.2 mmHg (75.0-100.0); BG SAMPLE SITE RIGHT RADIAL; BG TOTAL HEMOGLOBIN 9.1 g/dL (12.0-18.0); BG VENT MODE ROOM AIR
[2021-11-08] MEDS: HALOPERIDOL LACTATE 5MG/ML VIAL IM PRN (10:22)
[2021-11-08] MEDS ORDERED: LIDOCAINE HCL 1% 20ML VIAL (Pyxis) INJ ONE (10:35)
[2021-11-08] MEDS ORDERED: HEPARIN 1000 UNITS/ML 10ML ONE (10:35)
[2021-11-08 16:28] LABS: BASOPHILS % 0.6 % (0.0-2.0); EOSINOPHILS % 0.3 % (0.0-5.0); HEMATOCRIT. 25.8 % (36.0-48.0); HEMOGLOBIN. 8.2 g/dL (12.0-16.0); LYMPHOCYTES % 12.5 % (20.0-50.0); MEAN CORPUSCULAR HEMOGLOBIN 28.5 pg (28.0-32.0); MEAN PLATELET VOLUME 9.5 fl (7.4-10.4); NEUTROPHILS % 72.6 % (40.0-76.0); PLATELET 136 x1000/uL (130-400); RED BLOOD CELL COUNT 2.87 mill/uL (4.2-5.4); RED CELL DISTRIBUTION WIDTH 18.3 % (11.6-14.6)
[2021-11-08] MEDS: ACETAMINOPHEN 325MG TABLET PO PRN (18:04)
[2021-11-08] MEDS: FAMOTIDINE 20MG TABLET PO SCH (22:10)
[2021-11-08] MEDS: CINACALCET HCL 30MG TABLET PO SCH (22:11)
[2021-11-09] VITALS (74 sets, daily range): BP systolic 31–163; BP diastolic 14–110
[2021-11-09] MEDS: INSULIN LISPRO 100 UNITS/ML SUBCUT SCH ×4 (06:00→17:52)
[2021-11-09] MEDS: BLOOD SUGAR DIAGNOSTIC STRIP TEST SCH ×4 (06:00→17:52)
[2021-11-09] MEDS: MIDODRINE HCL 5MG TABLET PO SCH ×3 (06:31→22:00)
[2021-11-09] MEDS: BACLOFEN 10MG TABLET PO SCH ×3 (06:31→22:00)
[2021-11-09] MEDS: CLOPIDOGREL 75MG TABLET PO SCH (10:13)
[2021-11-09] MEDS: FLUOXETINE HCL 10 MG CAPSULE PO SCH (10:13)
[2021-11-09] MEDS: APIXABAN 2.5 MG TABLET PO SCH (10:13)
[2021-11-09] MEDS: ONDANSETRON HCL 4MG/2ML INJ IV PRN (10:13)
[2021-11-09] MEDS: RISPERIDONE 0.25MG TABLET PO SCH ×2 (10:13→21:00)
[2021-11-09] MEDS: SEVELAMER CARBONATE 800 MG TABLET PO SCH ×3 (10:13→17:20)
[2021-11-09 12:11] LABS: BASOPHILS % 0.5 % (0.0-2.0); EOSINOPHILS % 0.1 % (0.0-5.0); HEMATOCRIT. 26.3 % (36.0-48.0); HEMOGLOBIN. 8.5 g/dL (12.0-16.0); LYMPHOCYTES % 9.8 % (20.0-50.0); MEAN CORPUSCULAR HEMOGLOBIN 29.1 pg (28.0-32.0); MEAN CORPUSCULAR VOLUME 89.7 fL (81.0-99.0); MEAN PLATELET VOLUME 9.4 fl (7.4-10.4); MONOCYTES % 7.2 % (2.0-8.0); NEUTROPHILS % 82.4 % (40.0-76.0); PLATELET 156 x1000/uL (130-400); RED BLOOD CELL COUNT 2.93 mill/uL (4.2-5.4); RED CELL DISTRIBUTION WIDTH 17.9 % (11.6-14.6)
[2021-11-09] MEDS: METOCLOPRAMIDE HCL 10MG/2ML VIAL IV SCH ×2 (12:25→18:17)
[2021-11-09] MEDS: DILTIAZEM HCL 60MG TABLET PO SCH ×2 (12:28→17:52)
[2021-11-09 15:53] LABS: BG BASE EXCESS 0.2 mmol/L (-2.0-2.0); BG CARBOXYHEMOGLOBIN 0.3 % (0.5-1.5); BG DEOXYHEMOGLOBIN 0.6 % (0.0-5.0); BG FRACTION INSPIRED OXYGEN 100; BG HCO3 ACT 23.4 mmol/L (22.0-26.0); BG METHEMOGLOBIN 0.5 % (0.0-1.5); BG OXYGEN SATURATION 99.4 % (92.0-98.5); BG OXYHEMOGLOBIN 98.6 % (94.0-97.0); BG PCO2 32.1 mmHg (35.0-45.0); BG PH 7.481 (7.350-7.450); BG PO2 342.7 mmHg (75.0-100.0); BG SAMPLE SITE RIGHT RADIAL; BG TOTAL HEMOGLOBIN 8.5 g/dL (12.0-18.0); BG VENT MODE MASK - NRB
[2021-11-09] MEDS ORDERED: DOPAMINE 400MG/250ML PREMIX 250 ML IV SCH (16:00)
[2021-11-09] MEDS: CINACALCET HCL 30MG TABLET PO SCH (17:20)
[2021-11-09] MEDS: NOREPINEPHRINE 8 MG in DEXT 5% WATER 242 ML IV SCH ×4 (17:51→22:46)
[2021-11-09] MEDS ORDERED: SODIUM CHLORIDE 0.9% 500 ML IV NR ×2 (18:00)
[2021-11-09 18:17] LABS: BG CARBOXYHEMOGLOBIN 0.3 % (0.5-1.5); BG FRACTION INSPIRED OXYGEN 100; BG HCO3 ACT 22.7 mmol/L (22.0-26.0); BG METHEMOGLOBIN 0.1 % (0.0-1.5); BG OXYHEMOGLOBIN 98.6 % (94.0-97.0); BG PCO2 38.4 mmHg (35.0-45.0); BG SAMPLE SITE RIGHT RADIAL; BG TOTAL HEMOGLOBIN 10.1 g/dL (12.0-18.0); BG VENT MODE MASK - NRB
[2021-11-09 20:37] LABS: BG BASE EXCESS -6.1 mmol/L (-2.0-2.0); BG CARBOXYHEMOGLOBIN 0.3 % (0.5-1.5); BG FRACTION INSPIRED OXYGEN 100; BG HCO3 ACT 18.3 mmol/L (22.0-26.0); BG METHEMOGLOBIN 0.4 % (0.0-1.5); BG OXYHEMOGLOBIN 98.3 % (94.0-97.0); BG PCO2 32.3 mmHg (35.0-45.0); BG PH 7.372 (7.350-7.450); BG PO2 206.7 mmHg (75.0-100.0); BG SAMPLE SITE RIGHT RADIAL; BG TOTAL HEMOGLOBIN 9.9 g/dL (12.0-18.0); BG VENT MODE MASK - NRB
[2021-11-09] MEDS: PHENYLEPHRINE 100 MG in DEXT 5% WATER 240 ML IV PRN (20:44)
[2021-11-09] MEDS: FAMOTIDINE 20MG TABLET PO SCH (21:00)
[2021-11-09] MEDS: ACETAMINOPHEN 650MG SUPP PR PRN (23:00)
[2021-11-09] MEDS ORDERED: CEFTRIAXONE 1,000 MG in DEXTROSE 5% WATER 50 ML IV SCH (23:30)
[2021-11-10] VITALS (86 sets, daily range): BP systolic 66–167; BP diastolic 19–117
[2021-11-10] MEDS: BLOOD SUGAR DIAGNOSTIC STRIP TEST SCH ×5 (00:23→23:21)
[2021-11-10] MEDS: METOCLOPRAMIDE HCL 10MG/2ML VIAL IV SCH ×5 (00:23→23:21)
[2021-11-10] MEDS ORDERED: VANCOMYCIN 2,000 MG in DEXT 5% WATER 500 ML IV NR (00:30)
[2021-11-10] MEDS: NOREPINEPHRINE 32 MG in DEXT 5% WATER 218 ML IV PRN ×2 (00:40→06:31)
[2021-11-10] MEDS: INSULIN LISPRO 100 UNITS/ML SUBCUT SCH ×5 (01:00→23:21)
[2021-11-10] MEDS: PHENYLEPHRINE 100 MG in DEXT 5% WATER 240 ML IV PRN ×5 (01:24→20:29)
[2021-11-10 05:25] LABS: BASOPHILS % 0.5 % (0.0-2.0); EOSINOPHILS % 0.1 % (0.0-5.0); HEMATOCRIT. 29.5 % (36.0-48.0); HEMOGLOBIN. 9.3 g/dL (12.0-16.0); LYMPHOCYTES % 13.5 % (20.0-50.0); MEAN CORPUSCULAR HEMOGLOBIN 28.9 pg (28.0-32.0); MEAN CORPUSCULAR VOLUME 91.7 fL (81.0-99.0); MEAN PLATELET VOLUME 9.5 fl (7.4-10.4); MONOCYTES % 8.5 % (2.0-8.0); NEUTROPHILS % 77.4 % (40.0-76.0); PLATELET 155 x1000/uL (130-400); RED BLOOD CELL COUNT 3.21 mill/uL (4.2-5.4); RED CELL DISTRIBUTION WIDTH 18.1 % (11.6-14.6)
[2021-11-10] MEDS: MIDODRINE HCL 5MG TABLET PO SCH ×3 (05:28→22:00)
[2021-11-10] MEDS: BACLOFEN 10MG TABLET PO SCH ×3 (05:28→22:00)
[2021-11-10 05:56] LABS: CHLORIDE 99 mEq/L (98-107)
[2021-11-10] MEDS: ACETAMINOPHEN 650MG SUPP PR PRN (06:31)
[2021-11-10 08:18] LABS: BG BASE EXCESS -1.7 mmol/L (-2.0-2.0); BG CARBOXYHEMOGLOBIN 0.3 % (0.5-1.5); BG DEOXYHEMOGLOBIN 0.8 % (0.0-5.0); BG HCO3 ACT 22.5 mmol/L (22.0-26.0); BG METHEMOGLOBIN 0.3 % (0.0-1.5); BG OXYGEN SATURATION 99.2 % (92.0-98.5); BG OXYHEMOGLOBIN 98.6 % (94.0-97.0); BG PCO2 35.9 mmHg (35.0-45.0); BG PH 7.415 (7.350-7.450); BG PO2 167.3 mmHg (75.0-100.0); BG SAMPLE SITE RIGHT RADIAL; BG TOTAL HEMOGLOBIN 9.6 g/dL (12.0-18.0); BG VENT MODE MASK - SIMPLE
[2021-11-10] MEDS: RISPERIDONE 0.25MG TABLET PO SCH ×2 (08:18→20:07)
[2021-11-10] MEDS: SEVELAMER CARBONATE 800 MG TABLET PO SCH ×3 (08:18→17:17)
[2021-11-10] MEDS: FLUOXETINE HCL 10 MG CAPSULE PO SCH (08:18)
[2021-11-10] MEDS ORDERED: PIPERACILLIN/TAZOBACTAM 3.375GM/50ML PREMIX IV ONE (09:00)
[2021-11-10] MEDS ORDERED: PIPERACILLIN/TAZOBACTAM 3.375 G in DEXTROSE 5% WATER 50 ML IV SCH (11:00)
[2021-11-10] MEDS ORDERED: PIPERACILLIN/TAZOBACTAM 2.25 G in DEXTROSE 5% WATER 50 ML IV SCH (17:00)
[2021-11-10] MEDS: CINACALCET HCL 30MG TABLET PO SCH (17:17)
[2021-11-10] MEDS: CEFEPIME 1,000 MG in DEXTROSE 5% WATER 50 ML IV SCH (19:21)
[2021-11-10] MEDS: FAMOTIDINE 20MG TABLET PO SCH (20:07)
[2021-11-11] VITALS (96 sets, daily range): BP systolic 52–149; BP diastolic 17–121
[2021-11-11] MEDS: PHENYLEPHRINE 100 MG in DEXT 5% WATER 240 ML IV PRN ×5 (04:27→23:03)
[2021-11-11] MEDS: BACLOFEN 10MG TABLET PO SCH ×2 (05:28→13:08)
[2021-11-11] MEDS: BLOOD SUGAR DIAGNOSTIC STRIP TEST SCH ×4 (05:29→23:00)
[2021-11-11] MEDS: MIDODRINE HCL 5MG TABLET PO SCH ×3 (05:29→21:00)
[2021-11-11] MEDS: INSULIN LISPRO 100 UNITS/ML SUBCUT SCH ×4 (05:29→23:00)
[2021-11-11] MEDS: METOCLOPRAMIDE HCL 10MG/2ML VIAL IV SCH ×4 (06:00→23:00)
[2021-11-11 07:02] LABS: BASOPHILS % 0.7 % (0.0-2.0); EOSINOPHILS % 0.7 % (0.0-5.0); HEMATOCRIT. 24.4 % (36.0-48.0); HEMOGLOBIN. 7.7 g/dL (12.0-16.0); LYMPHOCYTES % 17.5 % (20.0-50.0); MEAN CORPUSCULAR VOLUME 89.1 fL (81.0-99.0); MEAN PLATELET VOLUME 9.9 fl (7.4-10.4); MONOCYTES % 10.7 % (2.0-8.0); NEUTROPHILS % 70.4 % (40.0-76.0); PLATELET 107 x1000/uL (130-400); RED BLOOD CELL COUNT 2.74 mill/uL (4.2-5.4); RED CELL DISTRIBUTION WIDTH 18.3 % (11.6-14.6)
[2021-11-11] MEDS: ACETAMINOPHEN 650MG SUPP PR PRN (08:02)
[2021-11-11] MEDS: SEVELAMER CARBONATE 800 MG TABLET PO SCH ×3 (08:20→18:04)
[2021-11-11 08:43] LABS: BG BASE EXCESS -1.8 mmol/L (-2.0-2.0); BG CARBOXYHEMOGLOBIN 0.6 % (0.5-1.5); BG FRACTION INSPIRED OXYGEN 32; BG METHEMOGLOBIN 0.4 % (0.0-1.5); BG PH 7.493 (7.350-7.450); BG PO2 87.7 mmHg (75.0-100.0); BG SAMPLE SITE RIGHT RADIAL; BG TOTAL HEMOGLOBIN 8.2 g/dL (12.0-18.0); BG VENT MODE NASAL CANNULA
[2021-11-11] MEDS: FLUOXETINE HCL 10 MG CAPSULE PO SCH (09:00)
[2021-11-11] MEDS: RISPERIDONE 0.25MG TABLET PO SCH ×2 (09:00→20:55)
[2021-11-11] MEDS: PANTOPRAZOLE SODIUM 40 MG/VIAL IV SCH (10:53)
[2021-11-11] MEDS ORDERED: SODIUM CHLORIDE 0.9% IV SCH (12:30)
[2021-11-11] MEDS ORDERED: GENTAMICIN SULFATE IV SCH (12:30)
[2021-11-11] MEDS: NOREPINEPHRINE 32 MG in DEXT 5% WATER 218 ML IV PRN (13:31)
[2021-11-11] MEDS: CINACALCET HCL 30MG TABLET PO SCH (18:04)
[2021-11-11] MEDS: CEFEPIME 1,000 MG in DEXTROSE 5% WATER 50 ML IV SCH (18:04)
[2021-11-11] MEDS: FAMOTIDINE 20MG TABLET PO SCH (20:55)
[2021-11-12] VITALS (84 sets, daily range): BP systolic 65–141; BP diastolic 24–95
[2021-11-12] MEDS: PHENYLEPHRINE 100 MG in DEXT 5% WATER 240 ML IV PRN ×4 (02:54→19:44)
[2021-11-12] MEDS: METOCLOPRAMIDE HCL 10MG/2ML VIAL IV SCH ×3 (05:09→17:51)
[2021-11-12] MEDS: BLOOD SUGAR DIAGNOSTIC STRIP TEST SCH ×3 (05:09→17:26)
[2021-11-12] MEDS: INSULIN LISPRO 100 UNITS/ML SUBCUT SCH ×3 (05:09→18:00)
[2021-11-12] MEDS: MIDODRINE HCL 5MG TABLET PO SCH ×3 (05:09→21:07)
[2021-11-12 06:59] LABS: BASOPHILS % 0.9 % (0.0-2.0); EOSINOPHILS % 1.2 % (0.0-5.0); HEMATOCRIT. 23.2 % (36.0-48.0); HEMOGLOBIN. 7.6 g/dL (12.0-16.0); LYMPHOCYTES % 11.8 % (20.0-50.0); MEAN CORPUSCULAR HEMOGLOBIN 29.1 pg (28.0-32.0); MEAN CORPUSCULAR VOLUME 88.9 fL (81.0-99.0); MEAN PLATELET VOLUME 10.4 fl (7.4-10.4); MONOCYTES % 10.3 % (2.0-8.0); NEUTROPHILS % 75.8 % (40.0-76.0); PLATELET 89 x1000/uL (130-400); RED BLOOD CELL COUNT 2.61 mill/uL (4.2-5.4); RED CELL DISTRIBUTION WIDTH 18.1 % (11.6-14.6)
[2021-11-12 07:10] LABS: INR 1.3
[2021-11-12] MEDS ORDERED: DOCUSATE SODIUM 100MG CAPSULE PO SCH (09:00)
[2021-11-12] MEDS: RISPERIDONE 0.25MG TABLET PO SCH ×2 (09:00→21:09)
[2021-11-12] MEDS: DOCUSATE SODIUM SUGAR FREE 100MG/10ML UDC NG SCH ×2 (09:11→17:51)
[2021-11-12] MEDS: FLUOXETINE HCL 10 MG CAPSULE PO SCH (09:11)
[2021-11-12] MEDS: FOLIC ACID/VITAMIN B COMP W-C TABLET PO SCH (09:11)
[2021-11-12] MEDS: SEVELAMER CARBONATE 800 MG TABLET PO SCH ×3 (09:11→17:51)
[2021-11-12] MEDS: PANTOPRAZOLE SODIUM 40 MG/VIAL IV SCH (09:11)
[2021-11-12] MEDS: CINACALCET HCL 30MG TABLET PO SCH (17:51)
[2021-11-12] MEDS: CEFEPIME 1,000 MG in DEXTROSE 5% WATER 50 ML IV SCH (17:51)
[2021-11-12] MEDS: DEXTROSE 50% WATER 50ML SYRINGE IV PRN (18:58)
[2021-11-12] MEDS: NOREPINEPHRINE 32 MG in DEXT 5% WATER 218 ML IV PRN (20:41)
[2021-11-12] MEDS ORDERED: POLYETHYLENE GLYCOL 3350 (17GM) 1 DOSE PACK PO NR (21:15)
[2021-11-12] MEDS ORDERED: LACTULOSE 20G/30ML UDC PO PRN (21:15)
[2021-11-13] VITALS (79 sets, daily range): BP systolic 61–216; BP diastolic 27–99
[2021-11-13] MEDS: PHENYLEPHRINE 100 MG in DEXT 5% WATER 240 ML IV PRN ×6 (00:13→22:53)
[2021-11-13] MEDS: METOCLOPRAMIDE HCL 10MG/2ML VIAL IV SCH ×5 (01:31→23:49)
[2021-11-13] MEDS: INSULIN LISPRO 100 UNITS/ML SUBCUT SCH ×5 (06:00→23:49)
[2021-11-13 06:03] LABS: BASOPHILS % 0.6 % (0.0-2.0); EOSINOPHILS % 1.7 % (0.0-5.0); HEMATOCRIT. 24.9 % (36.0-48.0); HEMOGLOBIN. 8.1 g/dL (12.0-16.0); LYMPHOCYTES % 13.9 % (20.0-50.0); MEAN CORPUSCULAR HEMOGLOBIN 29.1 pg (28.0-32.0); MEAN CORPUSCULAR VOLUME 88.8 fL (81.0-99.0); MEAN PLATELET VOLUME 9.9 fl (7.4-10.4); NEUTROPHILS % 71.8 % (40.0-76.0); PLATELET 80 x1000/uL (130-400); RED CELL DISTRIBUTION WIDTH 18.3 % (11.6-14.6)
[2021-11-13 06:10] LABS: INR 1.3; PROTHROMBIN TIME 13.3 sec (9.6-11.0)
[2021-11-13] MEDS: BLOOD SUGAR DIAGNOSTIC STRIP TEST SCH ×5 (06:16→23:50)
[2021-11-13] MEDS: MIDODRINE HCL 5MG TABLET PO SCH ×3 (06:18→21:40)
[2021-11-13 06:32] LABS: GENTAMICIN RANDOM 3.9 ug/mL
[2021-11-13] MEDS: RISPERIDONE 0.25MG TABLET PO SCH ×2 (08:41→21:00)
[2021-11-13] MEDS: PANTOPRAZOLE SODIUM 40 MG/VIAL IV SCH (08:41)
[2021-11-13] MEDS: DOCUSATE SODIUM SUGAR FREE 100MG/10ML UDC NG SCH ×2 (08:41→18:08)
[2021-11-13] MEDS: FOLIC ACID/VITAMIN B COMP W-C TABLET PO SCH (08:41)
[2021-11-13] MEDS: FLUOXETINE HCL 10 MG CAPSULE PO SCH (08:41)
[2021-11-13] MEDS: SEVELAMER CARBONATE 800 MG TABLET PO SCH ×3 (08:42→18:06)
[2021-11-13] MEDS ORDERED: HEPARIN SODIUM 1,000 UNIT/1ML VIAL IV SCH (10:30)
[2021-11-13] MEDS: ONDANSETRON 4MG ODT PO PRN (11:15)
[2021-11-13] MEDS ORDERED: VANCOMYCIN 500 MG PREMIX 100 ML IV NR (18:00)
[2021-11-13] MEDS: CINACALCET HCL 30MG TABLET PO SCH (18:05)
[2021-11-13] MEDS: AMPICILLIN 2000MG in SODIUM CHLORIDE 0.9% 100ML IV SCH (18:08)
[2021-11-13] MEDS: CEFEPIME 1,000 MG in DEXTROSE 5% WATER 50 ML IV SCH (18:08)
[2021-11-13] MEDS: NOREPINEPHRINE 32 MG in DEXT 5% WATER 218 ML IV PRN (19:04)
[2021-11-14] VITALS (70 sets, daily range): BP systolic 90–197; BP diastolic 31–117
[2021-11-14] MEDS: PHENYLEPHRINE 100 MG in DEXT 5% WATER 240 ML IV PRN ×2 (03:34→22:46)
[2021-11-14] MEDS: MIDODRINE HCL 5MG TABLET PO SCH ×3 (05:23→21:24)
[2021-11-14] MEDS: INSULIN LISPRO 100 UNITS/ML SUBCUT SCH ×3 (05:23→17:36)
[2021-11-14] MEDS: BLOOD SUGAR DIAGNOSTIC STRIP TEST SCH ×3 (05:23→17:18)
[2021-11-14] MEDS: DEXTROSE 50% WATER 50ML SYRINGE IV PRN (05:23)
[2021-11-14] MEDS: METOCLOPRAMIDE HCL 10MG/2ML VIAL IV SCH ×3 (05:23→17:36)
[2021-11-14] MEDS: AMPICILLIN 2000MG in SODIUM CHLORIDE 0.9% 100ML IV SCH ×2 (06:07→17:36)
[2021-11-14 06:25] LABS: BASOPHILS % 0.6 % (0.0-2.0); EOSINOPHILS % 1.1 % (0.0-5.0); HEMOGLOBIN. 7.6 g/dL (12.0-16.0); LYMPHOCYTES % 14.7 % (20.0-50.0); MEAN CORPUSCULAR HEMOGLOBIN 29.6 pg (28.0-32.0); MEAN CORPUSCULAR VOLUME 89.6 fL (81.0-99.0); MEAN PLATELET VOLUME 10.5 fl (7.4-10.4); MONOCYTES % 13.7 % (2.0-8.0); NEUTROPHILS % 69.9 % (40.0-76.0); PLATELET 67 x1000/uL (130-400); RED BLOOD CELL COUNT 2.57 mill/uL (4.2-5.4); RED CELL DISTRIBUTION WIDTH 18.6 % (11.6-14.6)
[2021-11-14] MEDS: FLUOXETINE HCL 10 MG CAPSULE PO SCH (09:00)
[2021-11-14] MEDS: RISPERIDONE 0.25MG TABLET PO SCH ×2 (09:00→21:26)
[2021-11-14] MEDS: FOLIC ACID/VITAMIN B COMP W-C TABLET PO SCH (09:00)
[2021-11-14] MEDS: DOCUSATE SODIUM SUGAR FREE 100MG/10ML UDC NG SCH (09:00)
[2021-11-14] MEDS: PANTOPRAZOLE SODIUM 40 MG/VIAL IV SCH (09:00)
[2021-11-14] MEDS: SEVELAMER CARBONATE 800 MG TABLET PO SCH ×3 (09:00→17:35)
[2021-11-14] MEDS ORDERED: [UNRECOGNIZED DRUG - REMARK] XX SCH (13:30)
[2021-11-14] MEDS: CEFEPIME 1,000 MG in DEXTROSE 5% WATER 50 ML IV SCH (17:35)
[2021-11-14] MEDS: CINACALCET HCL 30MG TABLET PO SCH (17:37)
[2021-11-15] VITALS (91 sets, daily range): BP systolic 85–133; BP diastolic 31–100
[2021-11-15] MEDS: METOCLOPRAMIDE HCL 10MG/2ML VIAL IV SCH ×5 (05:49→23:26)
[2021-11-15] MEDS: BLOOD SUGAR DIAGNOSTIC STRIP TEST SCH ×5 (05:49→23:28)
[2021-11-15] MEDS: INSULIN LISPRO 100 UNITS/ML SUBCUT SCH ×4 (05:49→18:00)
[2021-11-15] MEDS: AMPICILLIN 2000MG in SODIUM CHLORIDE 0.9% 100ML IV SCH ×2 (05:54→20:13)
[2021-11-15] MEDS: MIDODRINE HCL 5MG TABLET PO SCH ×3 (05:54→21:10)
[2021-11-15 06:45] LABS: BASOPHILS % 0.7 % (0.0-2.0); EOSINOPHILS % 1.8 % (0.0-5.0); HEMATOCRIT. 22.3 % (36.0-48.0); HEMOGLOBIN. 7.3 g/dL (12.0-16.0); LYMPHOCYTES % 17.1 % (20.0-50.0); MEAN CORPUSCULAR HEMOGLOBIN 28.8 pg (28.0-32.0); MEAN CORPUSCULAR VOLUME 88.4 fL (81.0-99.0); MEAN PLATELET VOLUME 9.6 fl (7.4-10.4); MONOCYTES % 13.3 % (2.0-8.0); NEUTROPHILS % 67.1 % (40.0-76.0); PLATELET 62 x1000/uL (130-400); RED BLOOD CELL COUNT 2.53 mill/uL (4.2-5.4); RED CELL DISTRIBUTION WIDTH 17.9 % (11.6-14.6)
[2021-11-15 07:10] LABS: GENTAMICIN RANDOM 1.5 ug/mL
[2021-11-15] MEDS: PHENYLEPHRINE 100 MG in DEXT 5% WATER 240 ML IV PRN ×2 (07:12→20:15)
[2021-11-15] MEDS: FLUOXETINE HCL 10 MG CAPSULE PO SCH (08:30)
[2021-11-15] MEDS: FOLIC ACID/VITAMIN B COMP W-C TABLET PO SCH (08:30)
[2021-11-15] MEDS: PANTOPRAZOLE SODIUM 40 MG/VIAL IV SCH (08:30)
[2021-11-15] MEDS: SEVELAMER CARBONATE 800 MG TABLET PO SCH ×3 (08:30→18:09)
[2021-11-15] MEDS: RISPERIDONE 0.25MG TABLET PO SCH ×2 (08:30→21:10)
[2021-11-15] MEDS: DOCUSATE SODIUM SUGAR FREE 100MG/10ML UDC NG SCH ×2 (08:31→17:00)
[2021-11-15] MEDS ORDERED: EPOETIN ALFA-EPBX 10,000 UNIT/ML VIAL SUBCUT NR (12:30)
[2021-11-15] MEDS ORDERED: IPRATROPIUM/ALBUTEROL 0.5-3(2.5)MG/3ML NEB HHN PRN (12:30)
[2021-11-15] MEDS ORDERED: GENTAMICIN 100MG PREMIX 50 ML IV SCH (14:00)
[2021-11-15] MEDS ORDERED: HEPARIN SODIUM 1,000 UNIT/1ML VIAL IV NR (17:15)
[2021-11-15] MEDS: CINACALCET HCL 30MG TABLET PO SCH (18:09)
[2021-11-15] MEDS: CEFEPIME 1,000 MG in DEXTROSE 5% WATER 50 ML IV SCH (20:13)
[2021-11-15] MEDS: IPRATROPIUM/ALBUTEROL 0.5-3(2.5)MG/3ML NEB HHN SCH (21:04)
[2021-11-15] MEDS: ACETAMINOPHEN 650MG/20.3ML UDC PO PRN (23:52)
[2021-11-16] VITALS (100 sets, daily range): BP systolic 58–131; BP diastolic 27–83
[2021-11-16] MEDS: PHENYLEPHRINE 100 MG in DEXT 5% WATER 240 ML IV PRN ×3 (01:55→17:44)
[2021-11-16] MEDS: IPRATROPIUM/ALBUTEROL 0.5-3(2.5)MG/3ML NEB HHN SCH ×4 (02:36→21:58)
[2021-11-16] MEDS: METOCLOPRAMIDE HCL 10MG/2ML VIAL IV SCH ×3 (05:11→17:16)
[2021-11-16] MEDS: BLOOD SUGAR DIAGNOSTIC STRIP TEST SCH ×3 (05:11→17:10)
[2021-11-16] MEDS: INSULIN LISPRO 100 UNITS/ML SUBCUT SCH ×4 (06:00→17:10)
[2021-11-16] MEDS: AMPICILLIN 2000MG in SODIUM CHLORIDE 0.9% 100ML IV SCH ×2 (06:06→17:16)
[2021-11-16] MEDS: MIDODRINE HCL 5MG TABLET PO SCH ×3 (06:06→21:50)
[2021-11-16 06:20] LABS: EOSINOPHILS % 0.7 % (0.0-5.0); HEMATOCRIT. 23.7 % (36.0-48.0); HEMOGLOBIN. 7.5 g/dL (12.0-16.0); MEAN CORPUSCULAR HEMOGLOBIN 28.3 pg (28.0-32.0); MONOCYTES % 10.7 % (2.0-8.0); NEUTROPHILS % 73.6 % (40.0-76.0); RED BLOOD CELL COUNT 2.64 mill/uL (4.2-5.4); RED CELL DISTRIBUTION WIDTH 18.2 % (11.6-14.6)
[2021-11-16] MEDS: SEVELAMER CARBONATE 800 MG TABLET PO SCH ×3 (08:15→17:22)
[2021-11-16] MEDS: FLUOXETINE HCL 10 MG CAPSULE PO SCH (08:15)
[2021-11-16] MEDS: DOCUSATE SODIUM SUGAR FREE 100MG/10ML UDC NG SCH ×2 (08:15→16:36)
[2021-11-16] MEDS: RISPERIDONE 0.25MG TABLET PO SCH ×2 (08:15→21:49)
[2021-11-16] MEDS: FOLIC ACID/VITAMIN B COMP W-C TABLET PO SCH (08:15)
[2021-11-16] MEDS: PANTOPRAZOLE SODIUM 40 MG/VIAL IV SCH (08:15)
[2021-11-16 10:00] LABS: PLATELET 92 x1000/uL (130-400)
[2021-11-16] MEDS: CEFEPIME 1,000 MG in DEXTROSE 5% WATER 50 ML IV SCH (16:39)
[2021-11-16] MEDS: CINACALCET HCL 30MG TABLET PO SCH (17:22)
[2021-11-17] VITALS (108 sets, daily range): BP systolic 68–126; BP diastolic 42–94
[2021-11-17] MEDS: METOCLOPRAMIDE HCL 10MG/2ML VIAL IV SCH ×5 (00:13→23:32)
[2021-11-17] MEDS: IPRATROPIUM/ALBUTEROL 0.5-3(2.5)MG/3ML NEB HHN SCH ×4 (02:29→21:44)
[2021-11-17] MEDS: PHENYLEPHRINE 100 MG in DEXT 5% WATER 240 ML IV PRN ×3 (02:47→17:12)
[2021-11-17] MEDS: INSULIN LISPRO 100 UNITS/ML SUBCUT SCH ×5 (05:26→23:39)
[2021-11-17] MEDS: BLOOD SUGAR DIAGNOSTIC STRIP TEST SCH ×5 (05:26→23:32)
[2021-11-17] MEDS: AMPICILLIN 2000MG in SODIUM CHLORIDE 0.9% 100ML IV SCH ×2 (05:33→17:10)
[2021-11-17] MEDS: MIDODRINE HCL 5MG TABLET PO SCH ×3 (05:34→21:04)
[2021-11-17 06:53] LABS: BASOPHILS % 0.6 % (0.0-2.0); EOSINOPHILS % 0.8 % (0.0-5.0); HEMATOCRIT. 22.2 % (36.0-48.0); HEMOGLOBIN. 7.2 g/dL (12.0-16.0); LYMPHOCYTES % 13.1 % (20.0-50.0); MEAN CORPUSCULAR HEMOGLOBIN 29.1 pg (28.0-32.0); MEAN CORPUSCULAR VOLUME 89.2 fL (81.0-99.0); MEAN PLATELET VOLUME 9.4 fl (7.4-10.4); MONOCYTES % 9.7 % (2.0-8.0); NEUTROPHILS % 75.8 % (40.0-76.0); PLATELET 101 x1000/uL (130-400); RED BLOOD CELL COUNT 2.49 mill/uL (4.2-5.4)
[2021-11-17 07:00] LABS: CHLORIDE 103 mEq/L (98-107)
[2021-11-17 07:08] LABS: GENTAMICIN RANDOM 1.8 ug/mL
[2021-11-17 07:19] LABS: INR 1.2; PROTHROMBIN TIME 12.9 sec (9.6-11.0)
[2021-11-17] MEDS: SEVELAMER CARBONATE 800 MG TABLET PO SCH ×3 (07:35→17:11)
[2021-11-17] MEDS: DOCUSATE SODIUM SUGAR FREE 100MG/10ML UDC NG SCH ×2 (08:42→17:10)
[2021-11-17] MEDS: PANTOPRAZOLE SODIUM 40 MG/VIAL IV SCH (08:42)
[2021-11-17] MEDS: FOLIC ACID/VITAMIN B COMP W-C TABLET PO SCH (08:42)
[2021-11-17] MEDS ORDERED: MIDAZOLAM HCL 5 MG/5 ML VIAL ONE (10:00)
[2021-11-17] MEDS ORDERED: FENTANYL CITRATE/PF 50MCG/ML 2ML VIAL ONE (10:00)
[2021-11-17] MEDS ORDERED: DIAZEPAM 5 MG/ML 2ML CPJ ONE (10:01)
[2021-11-17] MEDS ORDERED: CEFAZOLIN 1000MG PREMIX 0 ML IV ONE (10:01)
[2021-11-17] MEDS ORDERED: GENTAMICIN 100MG PREMIX 50 ML IV SCH (11:00)
[2021-11-17] MEDS ORDERED: MIDAZOLAM HCL 2 MG/2 ML VIAL IV PRN (12:15)
[2021-11-17] MEDS: CEFEPIME 1,000 MG in DEXTROSE 5% WATER 50 ML IV SCH (17:11)
[2021-11-17] MEDS: CINACALCET HCL 30MG TABLET PO SCH (17:11)
[2021-11-17 17:25] LABS: HEMATOCRIT 24.8 % (36.0-48.0); HEMOGLOBIN 7.9 g/dL (12.0-16.0)
[2021-11-18] VITALS (86 sets, daily range): BP systolic 82–131; BP diastolic 46–94
[2021-11-18] MEDS: ACETAMINOPHEN 650MG/20.3ML UDC PO PRN (00:21)
[2021-11-18] MEDS: IPRATROPIUM/ALBUTEROL 0.5-3(2.5)MG/3ML NEB HHN SCH ×4 (01:05→21:51)
[2021-11-18] MEDS: PHENYLEPHRINE 100 MG in DEXT 5% WATER 240 ML IV PRN ×2 (01:50→08:37)
[2021-11-18] MEDS: METOCLOPRAMIDE HCL 10MG/2ML VIAL IV SCH ×3 (05:39→18:07)
[2021-11-18] MEDS: MIDODRINE HCL 5MG TABLET PO SCH ×3 (05:42→21:59)
[2021-11-18] MEDS: AMPICILLIN 2000MG in SODIUM CHLORIDE 0.9% 100ML IV SCH ×2 (05:42→18:10)
[2021-11-18] MEDS: INSULIN LISPRO 100 UNITS/ML SUBCUT SCH ×3 (05:55→17:32)
[2021-11-18] MEDS: BLOOD SUGAR DIAGNOSTIC STRIP TEST SCH ×3 (06:00→17:32)
[2021-11-18 06:36] LABS: BASOPHILS % 0.6 % (0.0-2.0); EOSINOPHILS % 0.5 % (0.0-5.0); HEMATOCRIT. 23.9 % (36.0-48.0); LYMPHOCYTES % 10.9 % (20.0-50.0); MEAN CORPUSCULAR HEMOGLOBIN 29.2 pg (28.0-32.0); MEAN CORPUSCULAR VOLUME 87.6 fL (81.0-99.0); MEAN PLATELET VOLUME 9.5 fl (7.4-10.4); MONOCYTES % 10.2 % (2.0-8.0); NEUTROPHILS % 77.8 % (40.0-76.0); PLATELET 105 x1000/uL (130-400); RED BLOOD CELL COUNT 2.73 mill/uL (4.2-5.4); RED CELL DISTRIBUTION WIDTH 17.8 % (11.6-14.6)
[2021-11-18] MEDS: CINACALCET HCL 30MG TABLET PO SCH (08:26)
[2021-11-18] MEDS: FOLIC ACID/VITAMIN B COMP W-C TABLET PO SCH (08:26)
[2021-11-18] MEDS: DOCUSATE SODIUM SUGAR FREE 100MG/10ML UDC NG SCH ×2 (08:26→17:00)
[2021-11-18] MEDS: SEVELAMER CARBONATE 800 MG TABLET PO SCH ×3 (08:27→18:07)
[2021-11-18] MEDS: PANTOPRAZOLE SODIUM 40 MG/VIAL IV SCH (08:27)
[2021-11-18] MEDS ORDERED: PREDNISONE 20MG TABLET PEG SCH (21:00)
[2021-11-18] MEDS ORDERED: PREDNISOLONE 15 MG/5 ML ORAL SYRINGE PEG ONE (21:00)
[2021-11-19] VITALS (62 sets, daily range): BP systolic 92–154; BP diastolic 56–98
[2021-11-19] MEDS: METOCLOPRAMIDE HCL 10MG/2ML VIAL IV SCH ×4 (00:41→17:51)
[2021-11-19] MEDS: IPRATROPIUM/ALBUTEROL 0.5-3(2.5)MG/3ML NEB HHN SCH ×4 (02:12→21:06)
[2021-11-19] MEDS ORDERED: PREDNISOLONE 15 MG/5 ML ORAL SYRINGE PEG ONE ×2 (04:00→09:00)
[2021-11-19] MEDS ORDERED: PREDNISONE 20MG TABLET PEG SCH ×2 (04:00→09:00)
[2021-11-19] MEDS: MIDODRINE HCL 5MG TABLET PO SCH ×3 (05:14→22:00)
[2021-11-19] MEDS: AMPICILLIN 2000MG in SODIUM CHLORIDE 0.9% 100ML IV SCH ×2 (05:14→17:51)
[2021-11-19 06:34] LABS: HEMATOCRIT. 24.3 % (36.0-48.0); HEMOGLOBIN. 8.1 g/dL (12.0-16.0); MEAN CORPUSCULAR HEMOGLOBIN 29.3 pg (28.0-32.0); MEAN CORPUSCULAR VOLUME 88.2 fL (81.0-99.0); RED BLOOD CELL COUNT 2.76 mill/uL (4.2-5.4); RED CELL DISTRIBUTION WIDTH 18.2 % (11.6-14.6)
[2021-11-19] MEDS: DOCUSATE SODIUM SUGAR FREE 100MG/10ML UDC NG SCH (07:35)
[2021-11-19] MEDS: SEVELAMER CARBONATE 800 MG TABLET PO SCH ×3 (07:36→17:51)
[2021-11-19] MEDS: FOLIC ACID/VITAMIN B COMP W-C TABLET PO SCH (08:00)
[2021-11-19] MEDS: PANTOPRAZOLE SODIUM 40 MG/VIAL IV SCH (08:02)
[2021-11-19] MEDS ORDERED: DIPHENHYDRAMINE 50MG/ML VIAL IV NR (09:00)
[2021-11-19] MEDS ORDERED: IOHEXOL-350 100 ML BOTTLE ONE (10:51)
[2021-11-19] MEDS: INSULIN LISPRO 100 UNITS/ML SUBCUT SCH ×3 (12:00→17:51)
[2021-11-19] MEDS: BLOOD SUGAR DIAGNOSTIC STRIP TEST SCH ×3 (12:00→17:51)
[2021-11-19] MEDS ORDERED: DOCUSATE SODIUM SUGAR FREE 100MG/10ML UDC PEG PRN (14:00)
[2021-11-19] MEDS ORDERED: DIPHENHYDRAMINE 50MG/ML VIAL IM PRN (14:15)
[2021-11-19 15:28] LABS: PLATELET 100 x1000/uL (130-400)
[2021-11-19 15:33] LABS: PLATELET ESTIMATE DECREASED
[2021-11-19] MEDS: CINACALCET HCL 30MG TABLET PO SCH (17:51)
[2021-11-19] MEDS: ONDANSETRON 4MG ODT PO PRN (21:36)
[2021-11-20] VITALS (83 sets, daily range): BP systolic 93–140; BP diastolic 35–98
[2021-11-20] MEDS: IPRATROPIUM/ALBUTEROL 0.5-3(2.5)MG/3ML NEB HHN SCH ×4 (03:24→20:29)
[2021-11-20] MEDS: INSULIN LISPRO 100 UNITS/ML SUBCUT SCH ×5 (06:00→23:42)
[2021-11-20] MEDS: METOCLOPRAMIDE HCL 10MG/2ML VIAL IV SCH ×4 (06:00→18:00)
[2021-11-20] MEDS: BLOOD SUGAR DIAGNOSTIC STRIP TEST SCH ×5 (06:00→23:42)
[2021-11-20] MEDS: MIDODRINE HCL 5MG TABLET PO SCH ×3 (06:20→22:15)
[2021-11-20] MEDS: AMPICILLIN 2000MG in SODIUM CHLORIDE 0.9% 100ML IV SCH ×2 (06:20→17:24)
[2021-11-20 06:49] LABS: HEMATOCRIT. 24.7 % (36.0-48.0); MEAN CORPUSCULAR HEMOGLOBIN 28.9 pg (28.0-32.0); MEAN CORPUSCULAR VOLUME 88.6 fL (81.0-99.0); MEAN PLATELET VOLUME 9.2 fl (7.4-10.4); PLATELET 116 x1000/uL (130-400); RED BLOOD CELL COUNT 2.78 mill/uL (4.2-5.4); RED CELL DISTRIBUTION WIDTH 18.1 % (11.6-14.6)
[2021-11-20] MEDS: SEVELAMER CARBONATE 800 MG TABLET PO SCH ×3 (08:20→17:24)
[2021-11-20] MEDS: FOLIC ACID/VITAMIN B COMP W-C TABLET PO SCH (08:48)
[2021-11-20] MEDS: PANTOPRAZOLE SODIUM 40 MG/VIAL IV SCH (08:49)
[2021-11-20] MEDS ORDERED: HEPARIN SODIUM 1,000 UNIT/1ML VIAL IV SCH (10:45)
[2021-11-20] MEDS ORDERED: DIPHENHYDRAMINE 50MG/ML VIAL IV ONE (12:00)
[2021-11-20] MEDS ORDERED: PREDNISONE 20MG TABLET PO ONE (12:00)
[2021-11-20] MEDS ORDERED: HEPARIN SODIUM 1,000 UNIT/1ML VIAL IV ONE (12:23)
[2021-11-20] MEDS ORDERED: LIDOCAINE HCL 1% 20ML VIAL (Pyxis) INJ ONE (13:28)
[2021-11-20] MEDS ORDERED: IODIXANOL 320MG/ML 100 ML BOTTLE IV ONE (13:29)
[2021-11-20] MEDS ORDERED: MIDAZOLAM HCL 2 MG/2 ML VIAL ONE (14:05)
[2021-11-20] MEDS ORDERED: FENTANYL CITRATE/PF 50MCG/ML 2ML VIAL ONE (14:05)
[2021-11-20 15:38] LABS: PLATELET ESTIMATE DECREASED
[2021-11-20] MEDS ORDERED: GENTAMICIN 80MG PREMIX 100 ML IV NR (18:00)
[2021-11-20] MEDS: CINACALCET HCL 30MG TABLET PO SCH (18:20)
[2021-11-21] VITALS (46 sets, daily range): BP systolic 84–157; BP diastolic 36–132
[2021-11-21] MEDS: METOCLOPRAMIDE HCL 10MG/2ML VIAL IV SCH ×5 (00:13→23:20)
[2021-11-21] MEDS: IPRATROPIUM/ALBUTEROL 0.5-3(2.5)MG/3ML NEB HHN SCH ×4 (02:03→22:07)
[2021-11-21] MEDS: INSULIN LISPRO 100 UNITS/ML SUBCUT SCH ×4 (06:00→23:15)
[2021-11-21] MEDS: BLOOD SUGAR DIAGNOSTIC STRIP TEST SCH ×4 (06:00→23:15)
[2021-11-21 06:26] LABS: BASOPHILS % 0.3 % (0.0-2.0); HEMATOCRIT. 23.7 % (36.0-48.0); HEMOGLOBIN. 7.9 g/dL (12.0-16.0); LYMPHOCYTES % 9.1 % (20.0-50.0); MEAN CORPUSCULAR HEMOGLOBIN 29.4 pg (28.0-32.0); MEAN CORPUSCULAR VOLUME 88.5 fL (81.0-99.0); MEAN PLATELET VOLUME 8.9 fl (7.4-10.4); MONOCYTES % 6.9 % (2.0-8.0); NEUTROPHILS % 83.7 % (40.0-76.0); PLATELET 135 x1000/uL (130-400); RED BLOOD CELL COUNT 2.68 mill/uL (4.2-5.4); RED CELL DISTRIBUTION WIDTH 18.5 % (11.6-14.6)
[2021-11-21] MEDS: AMPICILLIN 2000MG in SODIUM CHLORIDE 0.9% 100ML IV SCH ×2 (06:34→17:48)
[2021-11-21] MEDS: MIDODRINE HCL 5MG TABLET PO SCH ×3 (06:35→21:15)
[2021-11-21] MEDS: PANTOPRAZOLE SODIUM 40 MG/VIAL IV SCH (08:59)
[2021-11-21] MEDS: FOLIC ACID/VITAMIN B COMP W-C TABLET PO SCH (09:00)
[2021-11-21] MEDS: SEVELAMER CARBONATE 800 MG TABLET PO SCH ×3 (09:00→17:49)
[2021-11-21] MEDS ORDERED: HEPARIN SODIUM 1,000 UNIT/1ML VIAL IV NR (15:45)
[2021-11-21] MEDS ORDERED: EPOETIN ALFA-EPBX 10,000 UNIT/ML VIAL SUBCUT NR (21:00)
[2021-11-22] VITALS (41 sets, daily range): BP systolic 92–130; BP diastolic 54–81
[2021-11-22] MEDS: IPRATROPIUM/ALBUTEROL 0.5-3(2.5)MG/3ML NEB HHN SCH ×4 (02:09→20:55)
[2021-11-22] MEDS: INSULIN LISPRO 100 UNITS/ML SUBCUT SCH ×3 (05:11→18:00)
[2021-11-22] MEDS: BLOOD SUGAR DIAGNOSTIC STRIP TEST SCH ×3 (05:11→18:27)
[2021-11-22] MEDS: METOCLOPRAMIDE HCL 10MG/2ML VIAL IV SCH ×3 (05:21→18:32)
[2021-11-22] MEDS: AMPICILLIN 2000MG in SODIUM CHLORIDE 0.9% 100ML IV SCH ×2 (05:21→19:13)
[2021-11-22] MEDS: MIDODRINE HCL 5MG TABLET PO SCH ×3 (05:21→21:30)
[2021-11-22 07:03] LABS: HEMATOCRIT 24.2 % (36.0-48.0); HEMOGLOBIN 8.1 g/dL (12.0-16.0)
[2021-11-22] MEDS: PANTOPRAZOLE SODIUM 40 MG/VIAL IV SCH (09:11)
[2021-11-22] MEDS: SEVELAMER CARBONATE 800 MG TABLET PO SCH ×3 (09:11→18:33)
[2021-11-22] MEDS: FOLIC ACID/VITAMIN B COMP W-C TABLET PO SCH (09:11)
[2021-11-22 12:54] LABS: BASOPHILS % 0.7 % (0.0-2.0); EOSINOPHILS % 0.1 % (0.0-5.0); HEMATOCRIT. 26.7 % (36.0-48.0); HEMOGLOBIN. 8.8 g/dL (12.0-16.0); LYMPHOCYTES % 8.8 % (20.0-50.0); MEAN CORPUSCULAR HEMOGLOBIN 29.4 pg (28.0-32.0); MEAN CORPUSCULAR VOLUME 89.6 fL (81.0-99.0); MEAN PLATELET VOLUME 8.9 fl (7.4-10.4); MONOCYTES % 6.3 % (2.0-8.0); NEUTROPHILS % 84.1 % (40.0-76.0); PLATELET 158 x1000/uL (130-400); RED BLOOD CELL COUNT 2.98 mill/uL (4.2-5.4); RED CELL DISTRIBUTION WIDTH 18.9 % (11.6-14.6)
[2021-11-22] MEDS ORDERED: GENTAMICIN 80MG PREMIX 100 ML IV NR (17:00)
[2021-11-23] VITALS (10 sets, daily range): BP systolic 114–124; BP diastolic 66–80
[2021-11-23] MEDS: BLOOD SUGAR DIAGNOSTIC STRIP TEST SCH ×2 (00:06→05:38)
[2021-11-23] MEDS: METOCLOPRAMIDE HCL 10MG/2ML VIAL IV SCH ×2 (00:06→05:37)
[2021-11-23] MEDS: IPRATROPIUM/ALBUTEROL 0.5-3(2.5)MG/3ML NEB HHN SCH ×2 (01:28→08:55)
[2021-11-23] MEDS: ACETAMINOPHEN 650MG/20.3ML UDC PO PRN (03:18)
[2021-11-23] MEDS: MIDODRINE HCL 5MG TABLET PO SCH (05:38)
[2021-11-23] MEDS: INSULIN LISPRO 100 UNITS/ML SUBCUT SCH ×2 (05:40)
[2021-11-23] MEDS: AMPICILLIN 2000MG in SODIUM CHLORIDE 0.9% 100ML IV SCH (06:08)
[2021-11-23] MEDS: FOLIC ACID/VITAMIN B COMP W-C TABLET PO SCH (08:01)
[2021-11-23] MEDS: PANTOPRAZOLE SODIUM 40 MG/VIAL IV SCH (08:01)
[2021-11-23] MEDS: SEVELAMER CARBONATE 800 MG TABLET PO SCH (08:01)
[2021-11-23] MEDS ORDERED: HALOPERIDOL LACTATE 5MG/ML VIAL IM NR (10:15)
[2021-11-23] MEDS ORDERED: EPOETIN ALFA-EPBX 4,000 UNIT/ML VIAL SUBCUT SCH (21:00)
== END 2021-11-23 12:00 | DRG 252 ==
LOC: ER 14:08 → 6WST 18:04 → UNDOADMIN 18:04 → 6WST 18:05 → ENRESERV 10-14 07:24 → 6WST 10-24 09:50 → UNDODISIN 11-02 12:20 → CVICU 11-05 12:30 → 3WST 11-08 00:44 → CVICU 11-09 20:00 → 5WST 11-22 15:22 → 5EST 11-22 15:24
PROVIDERS: ADMIT Internal Medicine; ATTEND Internal Medicine
PROC: 30233N1 Transfusion of Nonautologous Red Blood Cells into Peripheral Vein, Percutaneous Approach (ICD-10-PCS; 2021-10-14)
PROC: 06H033Z Insertion of Infusion Device into Inferior Vena Cava, Percutaneous Approach (ICD-10-PCS; 2021-10-14)
PROC: B549ZZA Ultrasonography of Inferior Vena Cava, Guidance (ICD-10-PCS; 2021-10-14)
PROC: B5191ZA Fluoroscopy of Inferior Vena Cava using Low Osmolar Contrast, Guidance (ICD-10-PCS; 2021-10-14)
PROC: 04WY0JZ Revision of Synthetic Substitute in Lower Artery, Open Approach (ICD-10-PCS; 2021-10-15)
PROC: 06W Lower Veins, Revision (ICD-10-PCS; 2021-10-15)
PROC: B51C1ZA Fluoroscopy of Left Lower Extremity Veins using Low Osmolar Contrast, Guidance (ICD-10-PCS; 2021-10-16)
PROC: 06HY33Z Insertion of Infusion Device into Lower Vein, Percutaneous Approach (ICD-10-PCS; 2021-10-16)
PROC: 5A1D70Z Performance of Urinary Filtration, Intermittent, Less than 6 Hours Per Day (ICD-10-PCS; 2021-10-20)
PROC: 5A1D70Z Performance of Urinary Filtration, Intermittent, Less than 6 Hours Per Day (ICD-10-PCS; 2021-10-27)
PROC: B51W1ZZ Fluoroscopy of Dialysis Shunt/Fistula using Low Osmolar Contrast (ICD-10-PCS; 2021-10-28)
PROC: B5191ZZ Fluoroscopy of Inferior Vena Cava using Low Osmolar Contrast (ICD-10-PCS; 2021-10-28)
PROC: B31N1ZZ Fluoroscopy of Other Upper Arteries using Low Osmolar Contrast (ICD-10-PCS; 2021-10-28)
PROC: 047K3ZZ Dilation of Right Femoral Artery, Percutaneous Approach (ICD-10-PCS; principal; 2021-10-31)
PROC: 5A1D70Z Performance of Urinary Filtration, Intermittent, Less than 6 Hours Per Day (ICD-10-PCS; 2021-10-31)
PROC: 037Y3ZZ Dilation of Upper Artery, Percutaneous Approach (ICD-10-PCS; 2021-10-31)
PROC: 3E05317 Introduction of Other Thrombolytic into Peripheral Artery, Percutaneous Approach (ICD-10-PCS; 2021-10-31)
PROC: B51W1ZZ Fluoroscopy of Dialysis Shunt/Fistula using Low Osmolar Contrast (ICD-10-PCS; 2021-10-31)
PROC: B5181ZZ Fluoroscopy of Superior Vena Cava using Low Osmolar Contrast (ICD-10-PCS; 2021-10-31)
PROC: 067M3ZZ Dilation of Right Femoral Vein, Percutaneous Approach (ICD-10-PCS; 2021-10-31)
PROC: 3E05317 Introduction of Other Thrombolytic into Peripheral Artery, Percutaneous Approach (ICD-10-PCS; 2021-10-31)
PROC: 5A1D70Z Performance of Urinary Filtration, Intermittent, Less than 6 Hours Per Day (ICD-10-PCS; 2021-11-01)
PROC: 5A1D70Z Performance of Urinary Filtration, Intermittent, Less than 6 Hours Per Day (ICD-10-PCS; 2021-11-04)
PROC: 06H033Z Insertion of Infusion Device into Inferior Vena Cava, Percutaneous Approach (ICD-10-PCS; 2021-11-05)
PROC: B5191ZA Fluoroscopy of Inferior Vena Cava using Low Osmolar Contrast, Guidance (ICD-10-PCS; 2021-11-05)
PROC: B549ZZA Ultrasonography of Inferior Vena Cava, Guidance (ICD-10-PCS; 2021-11-05)
PROC: 5A1D70Z Performance of Urinary Filtration, Intermittent, Less than 6 Hours Per Day (ICD-10-PCS; 2021-11-06)
PROC: 0JH63XZ Insertion of Tunneled Vascular Access Device into Chest Subcutaneous Tissue and Fascia, Percutaneous Approach (ICD-10-PCS; 2021-11-06)
PROC: 06H033Z Insertion of Infusion Device into Inferior Vena Cava, Percutaneous Approach (ICD-10-PCS; 2021-11-06)
PROC: B5191ZA Fluoroscopy of Inferior Vena Cava using Low Osmolar Contrast, Guidance (ICD-10-PCS; 2021-11-06)
PROC: B549ZZA Ultrasonography of Inferior Vena Cava, Guidance (ICD-10-PCS; 2021-11-06)
PROC: 5A1D70Z Performance of Urinary Filtration, Intermittent, Less than 6 Hours Per Day (ICD-10-PCS; 2021-11-07)
PROC: 05H533Z Insertion of Infusion Device into Right Subclavian Vein, Percutaneous Approach (ICD-10-PCS; 2021-11-07)
PROC: B546ZZA Ultrasonography of Right Subclavian Vein, Guidance (ICD-10-PCS; 2021-11-07)
PROC: 0JH63XZ Insertion of Tunneled Vascular Access Device into Chest Subcutaneous Tissue and Fascia, Percutaneous Approach (ICD-10-PCS; 2021-11-08)
PROC: 02H633Z Insertion of Infusion Device into Right Atrium, Percutaneous Approach (ICD-10-PCS; 2021-11-08)
PROC: B5181ZA Fluoroscopy of Superior Vena Cava using Low Osmolar Contrast, Guidance (ICD-10-PCS; 2021-11-08)
PROC: B548ZZA Ultrasonography of Superior Vena Cava, Guidance (ICD-10-PCS; 2021-11-08)
PROC: 5A1D70Z Performance of Urinary Filtration, Intermittent, Less than 6 Hours Per Day (ICD-10-PCS; 2021-11-09)
PROC: 0DH63UZ Insertion of Feeding Device into Stomach, Percutaneous Approach (ICD-10-PCS; 2021-11-17)
PROC: 5A1D70Z Performance of Urinary Filtration, Intermittent, Less than 6 Hours Per Day (ICD-10-PCS; 2021-11-18)
PROC: B41G1ZZ Fluoroscopy of Left Lower Extremity Arteries using Low Osmolar Contrast (ICD-10-PCS; 2021-11-20)
PROC: B41F1ZZ Fluoroscopy of Right Lower Extremity Arteries using Low Osmolar Contrast (ICD-10-PCS; 2021-11-20)
DX: T82.868A Thrombosis due to vascular prosthetic devices, implants and grafts, initial encounter (principal); I50.33 Acute on chronic diastolic (congestive) heart failure; T80.211A Bloodstream infection due to central venous catheter, initial encounter; N18.6 End stage renal disease; R65.21 Severe sepsis with septic shock; G92.8 Other toxic encephalopathy; I63.512 Cerebral infarction due to unspecified occlusion or stenosis of left middle cerebral artery; J69.0 Pneumonitis due to inhalation of food and vomit; K29.71 Gastritis, unspecified, with bleeding; A41.81 Sepsis due to Enterococcus; I13.2 Hypertensive heart and chronic kidney disease with heart failure and with stage 5 chronic kidney disease, or end stage renal disease; D62 Acute posthemorrhagic anemia; E11.52 Type 2 diabetes mellitus with diabetic peripheral angiopathy with gangrene; G81.91 Hemiplegia, unspecified affecting right dominant side; G81.94 Hemiplegia, unspecified affecting left nondominant side; I70.261 Atherosclerosis of native arteries of extremities with gangrene, right leg; N25.81 Secondary hyperparathyroidism of renal origin; Z68.41 Body mass index [BMI] 40.0-44.9, adult; E44.0 Moderate protein-calorie malnutrition; E66.01 Morbid (severe) obesity due to excess calories; E11.22 Type 2 diabetes mellitus with diabetic chronic kidney disease; Y83.2 Surgical operation with anastomosis, bypass or graft as the cause of abnormal reaction of the patient, or of later complication, without mention of misadventure at the time of the procedure; Y92.89 Other specified places as the place of occurrence of the external cause; E03.9 Hypothyroidism, unspecified; E11.65 Type 2 diabetes mellitus with hyperglycemia; E78.00 Pure hypercholesterolemia, unspecified; E78.5 Hyperlipidemia, unspecified; E83.39 Other disorders of phosphorus metabolism; E83.52 Hypercalcemia; E87.5 Hyperkalemia; F29 Unspecified psychosis not due to a substance or known physiological condition; F32.A Depression, unspecified; F41.9 Anxiety disorder, unspecified; I08.1 Rheumatic disorders of both mitral and tricuspid valves; I27.29 Other secondary pulmonary hypertension; K21.9 Gastro-esophageal reflux disease without esophagitis; G89.29 Other chronic pain; T82.838A Hemorrhage due to vascular prosthetic devices, implants and grafts, initial encounter; M54.50 Low back pain, unspecified; Z20.822 Contact with and (suspected) exposure to COVID-19; M13.862 Other specified arthritis, left knee; M13.861 Other specified arthritis, right knee; R07.89 Other chest pain; E88.09 Other disorders of plasma-protein metabolism, not elsewhere classified; R13.12 Dysphagia, oropharyngeal phase; Z78.1 Physical restraint status; Z79.01 Long term (current) use of anticoagulants; Z82.49 Family history of ischemic heart disease and other diseases of the circulatory system; Z86.718 Personal history of other venous thrombosis and embolism; Z87.891 Personal history of nicotine dependence; Z88.8 Allergy status to other drugs, medicaments and biological substances; Z99.2 Dependence on renal dialysis; Z91.041 Radiographic dye allergy status; Z79.82 Long term (current) use of aspirin; Z79.899 Other long term (current) drug therapy; I95.89 Other hypotension
CPT/HCPCS: 36246; 36415; 36556; 36558; 36580; 36600; 36901; 36905; 70544; 70553; 71045; 75635; 75710; 76937; 77001; 80048; 80053; 80061; 80170; 80202; 81025; 82040; 82140; 82270; 82310; 82375; 82550; 82553; 82607; 82728; 82746; 82784; 82805; 82962; 83010; 83036; 83540; 83550; 83615; 83735; 83880; 83970; 84100; 84145; 84439; 84443; 84478; 84484; 85014; 85018; 85025; 85044; 85384; 85651; 86140; 86334; 86705; 86709; 86803; 86850; 86880; 86900; 86920; 87070; 87077; 87186; 87340; 87426; 88304; 93005; 93306; 93922; 93970; 93971; 94640; 97162; 97166; 97168; 97530; 99152; 99153; 99285; A6261; C1725; C1750; C1752; C1760; C1766; C1768; C1769; C1884; C1887; C1892; C1893; C1894; C9113; J0290; J0456; J0690; J0692; J0696; J0885; J1100; J1170; J1200; J1265; J1580; J1630; J1642; J1644; J1650; J1815; J2060; J2175; J2250; J2270; J2310; J2370; J2405; J2430; J2543; J2704; J2765; J2997; J3010; J3370; J3490; J7030; J7040; J7050; J7060; J7512; L1830; P9016; Q0162; Q0163; Q9967; G0500

== ENCOUNTER 2021-12-27 07:48 | Day surgery (SDC) | payer MEDICARE, MEDICAID ==
[~2021-12-27] VITALS: Ht 167.6 cm; Wt 122.5 kg
[2021-12-27] MEDS ORDERED: CEFAZOLIN 1000MG PREMIX 50 ML IV NR (08:18)
[2021-12-27] MEDS ORDERED: IOHEXOL-300 100 ML BOTTLE ONE (08:18)
[2021-12-27] MEDS ORDERED: CEFAZOLIN 1000MG PREMIX 50 ML IV ONE (08:18)
[2021-12-27] MEDS ORDERED: HEPARIN 1000 UNITS/ML 10ML ONE (08:18)
[2021-12-27] MEDS ORDERED: LIDOCAINE HCL 1% 30ML VIAL (10MG/ML) ONE (08:19)
[2021-12-27] MEDS ORDERED: PROPOFOL 200MG/20ML VIAL IV ONE (08:42)
[2021-12-27] MEDS ORDERED: DEXAMETHASONE 4MG/ML 1ML VIAL ONE (11:18)
[2021-12-27] MEDS ORDERED: ONDANSETRON HCL 4MG/2ML INJ IV PRN (11:30)
[2021-12-27] MEDS ORDERED: SODIUM CHLORIDE 0.9% 1,000 ML IV SCH (11:30)
[2021-12-27] MEDS ORDERED: FENTANYL CITRATE/PF 50MCG/ML 2ML VIAL IV PRN (11:30)
[2021-12-27] MEDS ORDERED: HYDROMORPHONE HCL/PF 2MG/ML CPJ IV PRN (11:30)
[2021-12-27 12:07] VITALS: BP 138/76
[2021-12-27] MEDS ORDERED: IPRATROPIUM/ALBUTEROL 0.5-3(2.5)MG/3ML NEB HHN PRN (12:30)
[2021-12-27 13:16] LABS: BG BASE EXCESS -4.7 mmol/L (-2.0-2.0); BG CARBOXYHEMOGLOBIN 0.2 % (0.5-1.5); BG FRACTION INSPIRED OXYGEN 100; BG HCO3 ACT 20.6 mmol/L (22.0-26.0); BG METHEMOGLOBIN 0.3 % (0.0-1.5); BG OXYHEMOGLOBIN 97.5 % (94.0-97.0); BG PCO2 38.9 mmHg (35.0-45.0); BG PH 7.342 (7.350-7.450); BG PO2 131.2 mmHg (75.0-100.0); BG SAMPLE SITE RIGHT RADIAL; BG TOTAL HEMOGLOBIN 8.9 g/dL (12.0-18.0); BG VENT MODE MASK - NRB
[2021-12-27] MEDS ORDERED: PIPERACILLIN/TAZOBACTAM 3.375GM/50ML PREMIX IV ONE (14:00)
[2021-12-27] MEDS ORDERED: PIPERACILLIN/TAZOBACTAM 3.375 G in DEXTROSE 5% WATER 50 ML IV NR (14:30)
== END 2021-12-27 15:40 | disposition home or self-care (01) ==
LOC: RADANGIO 07:48
PROVIDERS: ATTEND Internal Medicine Nephrology
DX: I12.0 Hypertensive chronic kidney disease with stage 5 chronic kidney disease or end stage renal disease (principal); N18.6 End stage renal disease; J69.0 Pneumonitis due to inhalation of food and vomit; E66.01 Morbid (severe) obesity due to excess calories; D64.9 Anemia, unspecified; F17.210 Nicotine dependence, cigarettes, uncomplicated; Z86.73 Personal history of transient ischemic attack (TIA), and cerebral infarction without residual deficits; Z99.2 Dependence on renal dialysis; Z79.899 Other long term (current) drug therapy; Z98.890 Other specified postprocedural states; Z79.82 Long term (current) use of aspirin; Z91.041 Radiographic dye allergy status; Z88.8 Allergy status to other drugs, medicaments and biological substances; Z82.49 Family history of ischemic heart disease and other diseases of the circulatory system
CPT/HCPCS: 36556; 36600; 71045; 76937; 77001; 82375; 82805; 82962; C1725; C1752; C1769; J0690; J1100; J2405; J2543; J2704; J3010; J3490; J7040; J7060; Q9967; J1644